=== PATIENT | female | born 1965 | race Caucasian/White ===

== ENCOUNTER 2016-08-01 08:21 | Day surgery (SDC) | payer BC ==
[2016-07-29 14:12] VITALS: BMI 21.1
[~2016-08-01 08:21] MED LIST: LACTATED RINGERS 1,000 ML IV SCH
[2016-08-01] MEDS ORDERED: LIDOCAINE 1% 20 ML VIAL (10MG/ML) FOR IV START INTRADERMA ONE (08:50)
[2016-08-01 09:01] VITALS: RESP 16; TEMP 97.9
[2016-08-01] MEDS ORDERED: PROPOFOL 10 MG/ML 20 ML VIAL IV ONE (09:18)
[2016-08-01] MEDS ORDERED: LIDOCAINE 1% INJ 10MG/ML (20 ML MDV) ONE (09:18)
--- NOTE | 2016-08-01 09:30 | P.GSHP ---
History of Present Illness H&P Date: 08/01/16 Chief Complaint: abdominal pain This a 51-year-old female who presents today for EGD and colonoscopy. Patient had complaints of abdominal pain. The pain is in the epigastric area and left side. - Constitutional Constitutional: Reports as per HPI Past Medical History Past Medical History: Asthma, Fibromyalgia, GERD/Reflux, Hypertension Additional Past Medical History / Comment(s): ASTHMA (NO MEDS), CONSTIPATION AND BLOATING. History of Any Multi-Drug Resistant Organisms: None Reported Past Surgical History: Cholecystectomy Additional Past Surgical History / Comment(s): SURGERY A BABY FOR STENOSIS? FOOD WOULD NOT GO DOWN? Past Anesthesia/Blood Transfusion Reactions: Motion Sickness Past Psychological History: Anxiety, Depression Smoking Status: Former smoker Past Alcohol Use History: Occasional Additional Past Alcohol Use History / Comment(s): QUIT SMOKING 16 YRS AGO , SMOKED APPROX 20YRS, LESS PACK PPD. Past Drug Use History: None Reported - Past Family History Mother Family Medical History: Deep Vein Thrombosis (DVT) Medications and Allergies Home Medications Medication Instructions Recorded Confirmed Type Metoprolol Tartrate [Lopressor] 25 mg PO QAM 06/09/16 08/01/16 History Omeprazole 40 mg PO BID 06/09/16 08/01/16 History Allergies Allergy/AdvReac Type Severity Reaction Status Date / Time No Known Allergies Allergy Verified 07/29/16 14:05 Surgical - Exam Vital Signs Temp Pulse Resp BP Pulse Ox 97.9 F 81 16 109/70 98 08/01/16 08:45 08/01/16 08:45 08/01/16 08:45 08/01/16 08:45 08/01/16 08:45 - General well developed, no distress - Eyes PERRL - ENT normal pinna - Neck no masses - Respiratory normal expansion - Cardiovascular Rhythm: regular - Abdomen Abdomen: soft, non tender Assessment and Plan Plan: Abdominal pain. We'll perform EGD and colonoscopy.
--- NOTE | 2016-08-01 09:58 | P.OP ---
Date of Procedure: 08/01/16 Preoperative Diagnosis: Abdominal pain Postoperative Diagnosis: Mild antral gastritis Small hiatal hernia Mild diverticulosis Anesthesia: MAC Surgeon: Adalid Weber Pathology: other (Antrum, esophagus) Condition: stable Disposition: PACU Description of Procedure: Patient's placed on the endoscopy table in the lateral position. She received IV sedation. The gastroscope some placed oropharynx passed into the esophagus and into the stomach. The scope was then placed through the pylorus. The first and second portion of duodenum appeared normal. Scope was then brought back the antrum this appeared mildly inflamed. A biopsies was performed. The scope was retroflexed and the the stomach appeared normal. There was a small hiatal hernia. The distal esophagus appeared minimally inflamed a biopsies performed. The proximal esophagus appeared normal. The scope was withdrawn for patient. Next digital rectal exam was performed which revealed no abnormalities. The flexible colonoscope was then placed patient anus and passed throughout the entire colon. The ileocecal valve was visualized. The cecum, ascending and transverse colon appeared normal. In the descending colon there is minimal diverticular changes. The colon had mild diverticulosis. Scope was then brought back the rectum and this appeared normal. Scope was withdrawn for patient.
[2016-08-01 10:07] VITALS: BP 100/66; PULSE 74
[2016-08-01] MEDS ORDERED: IV FLUID CONTINUATION 1,000 ML IV ONE (10:37)
== END 2016-08-01 10:39 | disposition home or self-care (01) ==
LOC: ORWHC2ENDO 08:21
PROVIDERS: ATTEND Surgery
DX: K21.0 Gastro-esophageal reflux disease with esophagitis (principal); K57.30 Diverticulosis of large intestine without perforation or abscess without bleeding; K29.50 Unspecified chronic gastritis without bleeding; K44.9 Diaphragmatic hernia without obstruction or gangrene; I10 Essential (primary) hypertension; Z79.899 Other long term (current) drug therapy; Z87.891 Personal history of nicotine dependence
CPT/HCPCS: 88305; 88342; 45378; 43239; J2001; J2704; 99153

== ENCOUNTER → 2019-12-30 | Outpatient (CLI) | payer BC, OTHER ==
[2019-12-30 14:13] LABS: HCT 42.6 % (34.0-46.0); HGB 13.9 gm/dL (11.4-16.0); MCH 34.7 pg (25.0-35.0); MCHC 32.7 g/dL (31.0-37.0); Macrocytosis Moderate; Mean Platelet Volume 8.6; Platelet Count 181 k/uL (150-450); RBC 4.02 m/uL (3.80-5.40); RDW 13.5 % (11.5-15.5); WBC 7.7 k/uL (3.8-10.6)
[2019-12-30 22:09] LABS: African American GFR (CKD) 118.1 (60.0-200.0); Albumin 4.1 g/dL (3.80-4.90); Albumin/Globulin Ratio 1.58 (1.60-3.17); Anion Gap 7.4 mmol/L (4.00-12.00); BUN/Creat Ratio 8.33 Ratio (12.00-20.00); Calcium 9.4 mg/dL (8.7-10.3); Carbon Dioxide 33.6 mmol/L (21.6-31.8); Chol/HDL Ratio 2.14; Globulin 2.6 g/dL (1.6-3.3); LDL Cholesterol,Calculated 104.8 mg/dL (0.0-131.0); Non-African American GFR(CKD) 101.9 (60.0-200.0); Potassium 3.6 mmol/L (3.5-5.5); Total Bilirubin 1.6 mg/dL (0.2-1.2); Total Protein 6.7 g/dL (6.2-8.2); VLDL Calculation 15.2 mg/dL (5.00-40.00)
== END | disposition home or self-care (01) ==
LOC: LABWHC1 12:57
PROVIDERS: ATTEND Family Medicine
DX: R07.9 Chest pain, unspecified (principal)
CPT/HCPCS: 36415; 80053; 80061; 84484; 85027; 85379

== ENCOUNTER → 2019-12-31 | Outpatient (CLI) | payer OTHER ==
--- NOTE | 2020-01-01 15:28 | ECHOF ---
Referral Reason:R07.9 chest pain MEASUREMENTS -------- HEIGHT: 165.1 cm WEIGHT: 65.8 kg BP: RVIDd: 3.1 cm (< 3.3) IVSd: 1.1 cm (0.6 - 1.1) LVIDd: 3.6 cm (3.9 - 5.3) LVPWd: 1.4 cm (0.6 - 1.1) IVSs: 1.1 cm LVIDs: 2.5 cm LVPWs: 1.5 cm LAESV Index (A-L): 21.31 ml/m Ao Diam: 2.1 cm (2.0 - 3.7) AV Cusp: 1.6 cm (1.5 - 2.6) MV EXCURSION: 18.667 mm (> 18.000) MV EF SLOPE: 66 mm/s (70 - 150) EPSS: 0.3 cm MV E Amador: 1.04 m/s MV DecT: 211 ms MV A Amador: 0.65 m/s MV E/A Ratio: 1.62 RAP: 5.00 mmHg RVSP: 23.97 mmHg FINDINGS -------- This was a technically adequate study. The left ventricular size is normal. There is mild concentric left ventricular hypertrophy. Overa ll left ventricular systolic function is normal with, an EF between 55 - 60 %. The diastolic fillin g pattern is normal for the age of the patient 10.27. The right ventricle is normal in size. Normal LA size by volume 22+/-6 ml/m2. The right atrial size is normal. Interatrial and interventricular septum intact. There is no evidence of aortic regurgitation. There is no evidence of aortic stenosis. There is trace mitral regurgitation. Mild tricuspid regurgitation present. There is no evidence of pulmonary hypertension. The right v entricular systolic pressure, as measured by Doppler, is 23.97mmHg. There is no pulmonic regurgitation present. The aortic root size is normal. IVC Not well visulized. There is no pericardial effusion. CONCLUSIONS -------- 1. This was a technically adequate study. 2. The left ventricular size is normal. 3. There is mild concentric left ventricular hypertrophy. 4. Overall left ventricular systolic function is normal with, an EF between 55 - 60 %. 5. The diastolic filling pattern is normal for the age of the patient 10.27 6. The right ventricle is normal in size. 7. Normal LA size by volume 22+/-6 ml/m2. 8. The right atrial size is normal. 9. Interatrial and interventricular septum intact. 10. There is no evidence of aortic regurgitation. 11. There is no evidence of aortic stenosis. 12. There is trace mitral regurgitation. 13. Mild tricuspid regurgitation present. 14. There is no evidence of pulmonary hypertension. 15. The right ventricular systolic pressure, as measured by Doppler, is 23.97mmHg. 16. There is no pulmonic regurgitation present. 17. The aortic root size is normal. 18. IVC Not well visulized. 19. There is no pericardial effusion. NEUROSURGERY PHYSICIAN: Katrin Bowman RDCS
== END | disposition home or self-care (01) ==
LOC: RADECHMAIN 13:50
PROVIDERS: ATTEND Family Medicine
DX: I08.1 Rheumatic disorders of both mitral and tricuspid valves (principal)
CPT/HCPCS: 93306

== ENCOUNTER → 2020-01-01 | Outpatient (CLI) | payer OTHER ==
--- NOTE | 2020-01-01 16:55 | CT ---
EXAMINATION TYPE: CT angio chest DATE OF EXAM: 01/01/2020 COMPARISON: None HISTORY: Left sided chest pain, elevated d-dimer. CT DLP: 161.1 mGycm Automated exposure control for dose reduction was used. CONTRAST: Performed with IV Contrast, patient injected with 100 mL of Isovue 370. There are 3-D post processed images. The lungs are clear of infiltrate. There is no evidence of a pulmonary mass. There is no pleural effu peggy. There is no pericardial effusion. There is some fatty infiltration of the liver. Heart size is normal. There are no hilar masses. There is no mediastinal adenopathy. Thoracic aorta a ppears normal. There is no sign of aneurysm or dissection. Thoracic spine is intact. There is no comp ression fracture. Sternum is intact. Ribs appear intact. There is normal contrast opacification of the pulmonary arteries. There are no filling defects. IMPRESSION: Normal CT angiogram of the chest. No evidence of pulmonary embolism.
== END | disposition home or self-care (01) ==
LOC: RADCTMAIN 16:22
PROVIDERS: ATTEND Family Medicine
DX: R07.9 Chest pain, unspecified (principal); R79.89 Other specified abnormal findings of blood chemistry
CPT/HCPCS: 71275; Q9967

== ENCOUNTER 2020-04-13 10:54 | Inpatient (IN) | payer OTHER ==
[2020-04-13] MEDS ORDERED: SODIUM CHLORIDE 0.9% 1,000 ML IV STA (11:43)
[2020-04-13] MEDS ORDERED: HYDROmorphone 0.5 MG/0.5 ML SYRINGE IVP STA (11:43)
[2020-04-13] MEDS ORDERED: ONDANSETRON 4 MG/2 ML VIAL IVP STA (11:43)
--- NOTE | 2020-04-13 12:30 | ED ---
General Adult HPI - General Chief complaint: Abdominal Pain Stated complaint: Abd Pain, L Side Numbness Time Seen by Provider: 04/13/20 11:16 Source: patient, RN notes reviewed Mode of arrival: wheelchair Limitations: no limitations - History of Present Illness Initial comments: 55-year-old female with a past medical history of asthma, fibromyalgia, GERD, cholecystectomy presents to the emergency room for abdominal discomfort. Patient reports that she has had bloating of her abdomen for the past 3 weeks. She reports that a week ago she started to have swelling in her legs as well as a rash to her abdomen. Patient had an ultrasound performed that showed hypoechoic area/fluid surrounding the liver they may represent effusion or ascites. Correlate with computed tomography scan. Patient was then sent into the emergency room for a CAT scan by Dr. Christensen. Patient's abdominal pain has been accompanied by vomiting. She does not have diarrhea. Patient has no other complaints at this time including shortness of breath, chest pain, headache, or visual changes. - Related Data Home Medications Medication Instructions Recorded Confirmed Omeprazole 40 mg PO DAILY 06/09/16 04/13/20 Atorvastatin [Lipitor] 20 mg PO DAILY 04/13/20 04/13/20 Sulfamethox-Tmp 800-160Mg [Bactrim 1 tab PO Q12HR 04/13/20 04/13/20 DS 800-160 mg] valACYclovir HCL [Valtrex] 1,000 mg PO TID 04/13/20 04/13/20 Allergies Allergy/AdvReac Type Severity Reaction Status Date / Time No Known Allergies Allergy Verified 04/13/20 11:45 Review of Systems ROS Statement: Those systems with pertinent positive or pertinent negative responses have been documented in the HPI. ROS Other: All systems not noted in ROS Statement are negative. Past Medical History Past Medical History: Asthma, Fibromyalgia, GERD/Reflux, Hypertension Additional Past Medical History / Comment(s): ASTHMA (NO MEDS), CONSTIPATION AND BLOATING. History of Any Multi-Drug Resistant Organisms: None Reported Past Surgical History: Cholecystectomy Additional Past Surgical History / Comment(s): pyloric stenosis Past Anesthesia/Blood Transfusion Reactions: Motion Sickness Past Psychological History: Anxiety, Depression Smoking Status: Never smoker Past Alcohol Use History: Occasional Past Drug Use History: None Reported - Past Family History Mother Family Medical History: Deep Vein Thrombosis (DVT) General Exam Limitations: no limitations General appearance: alert, in no apparent distress Head exam: Present: atraumatic, normocephalic, normal inspection Eye exam: Present: normal appearance, PERRL, EOMI. Absent: scleral icterus, conjunctival injection, periorbital swelling ENT exam: Present: normal exam, mucous membranes moist Neck exam: Present: normal inspection, full ROM. Absent: tenderness, meningismus, lymphadenopathy Respiratory exam: Present: normal lung sounds bilaterally. Absent: respiratory distress, wheezes, rales, rhonchi, stridor Cardiovascular Exam: Present: regular rate, normal rhythm, normal heart sounds. Absent: systolic murmur, diastolic murmur, rubs, gallop, clicks GI/Abdominal exam: Present: distended, tenderness (Generalized abdominal tenderness), normal bowel sounds. Absent: guarding, rebound, rigid Extremities exam: Present: other (1+ pitting edema noted in the lower 70s bilaterally) Neurological exam: Present: alert Skin exam: Present: rash (Patient also has an erythematous macular rash noted to the abdomen that is blanchable.) Course Vital Signs 04/13/20 11:09 Temperature 99.4 F Pulse Rate 114 H Respiratory 18 Rate Blood Pressure 118/60 O2 Sat by Pulse 98 Oximetry Medical Decision Making - Medical Decision Making Patient had pelvic ultrasound outpatient that showed a single fibroid. However there was massive fluid identified throughout the pelvis recommending a computed tomography scan for further evaluation. . Patient had an abdomen ultrasound that showed hypoechoic area/fluid surrounding the liver that may represent effusion or ascites, correlate with CT. Gallbladder is absent. Common bile duct measures 5 mm. Patient's CA-125 was 514. CBC is unremarkable. CMP showed a total bilirubin of 9.9 with transaminitis noted. Urinalysis shows 2+ ketones 2+ bilirubin. Patient does have a history of cholecystectomy. CT abdomen and pelvis with contrast shows hepatomegaly with diffuse heterogeneous enhancement liver correlate for diffuse hepatocellular disease. There is a small amount of ascites, correlate clinically. Area of low attention seen within the caudate lobe suggestive of fatty infiltration. Nonspecific bowel gas pattern with a few prominent small bowel loops correlate for ileus or enteritis. Partial obstruct ion felt less likely but not entirely excluded. - Lab Data Result diagrams: 04/13/20 12:11 04/13/20 12:11 Lab Results 10/12/20 10/12/20 10/12/20 Range/Units 12:11 12:11 12:11 WBC 9.9 (3.8-10.6) k/uL RBC 3.36 L (3.80-5.40) m/uL Hgb 11.8 (11.4-16.0) gm/dL Hct 35.4 (34.0-46.0) % MCV 105.1 H (80.0-100.0) fL MCH 35.2 H (25.0-35.0) pg MCHC 33.5 (31.0-37.0) g/dL RDW 17.3 H (11.5-15.5) % Plt Count 198 (150-450) k/uL Neutrophils % 74 % Lymphocytes % 15 % Monocytes % 8 % Eosinophils % 2 % Basophils % 1 % Neutrophils # 7.4 (1.3-7.7) k/uL Lymphocytes # 1.5 (1.0-4.8) k/uL Monocytes # 0.8 (0-1.0) k/uL Eosinophils # 0.2 (0-0.7) k/uL Basophils # 0.1 (0-0.2) k/uL Anisocytosis Slight Macrocytosis Moderate PT (9.0-12.0) sec INR (<1.2) APTT (22.0-30.0) sec Sodium 127 L (137-145) mmol/L Potassium 3.9 (3.5-5.1) mmol/L Chloride 89 L (98-107) mmol/L Carbon Dioxide 23 (22-30) mmol/L Anion Gap 15 mmol/L BUN 10 (7-17) mg/dL Creatinine 0.61 (0.52-1.04) mg/dL Est GFR (CKD-EPI)AfAm >90 (>60 ml/min/1.73 sqM) Est GFR (CKD-EPI)NonAf >90 (>60 ml/min/1.73 sqM) Glucose 79 (74-99) mg/dL Calcium 8.7 (8.4-10.2) mg/dL Total Bilirubin 9.9 H (0.2-1.3) mg/dL AST 194 H (14-36) U/L ALT 51 H (4-34) U/L Alkaline Phosphatase 219 H (38-126) U/L Total Protein 7.6 (6.3-8.2) g/dL Albumin 3.7 (3.5-5.0) g/dL Amylase 41 (30-110) U/L Lipase 158 (23-300) U/L Urine Color Dark Yellow Urine Appearance Clear (Clear) Urine pH 6.0 (5.0-8.0) Ur Specific Equality 1.013 (1.001-1.035) Urine Protein Negative (Negative) Urine Glucose (UA) Negative (Negative) Urine Ketones 2+ H (Negative) Urine Blood Negative (Negative) Urine Nitrite Negative (Negative) Urine Bilirubin 2+ H (Negative) Urine Urobilinogen 8.0 (<2.0) mg/dL Ur Leukocyte Esterase Negative (Negative) 04/13/20 Range/Units 12:11 WBC (3.8-10.6) k/uL RBC (3.80-5.40) m/uL Hgb (11.4-16.0) gm/dL Hct (34.0-46.0) % MCV (80.0-100.0) fL MCH (25.0-35.0) pg MCHC (31.0-37.0) g/dL RDW (11.5-15.5) % Plt Count (150-450) k/uL Neutrophils % % Lymphocytes % % Monocytes % % Eosinophils % % Basophils % % Neutrophils # (1.3-7.7) k/uL Lymphocytes # (1.0-4.8) k/uL Monocytes # (0-1.0) k/uL Eosinophils # (0-0.7) k/uL Basophils # (0-0.2) k/uL Anisocytosis Macrocytosis PT 13.8 H (9.0-12.0) sec INR 1.4 H (<1.2) APTT 28.0 (22.0-30.0) sec Sodium (137-145) mmol/L Potassium (3.5-5.1) mmol/L Chloride (98-107) mmol/L Carbon Dioxide (22-30) mmol/L Anion Gap mmol/L BUN (7-17) mg/dL Creatinine (0.52-1.04) mg/dL Est GFR (CKD-EPI)AfAm (>60 ml/min/1.73 sqM) Est GFR (CKD-EPI)NonAf (>60 ml/min/1.73 sqM) Glucose (74-99) mg/dL Calcium (8.4-10.2) mg/dL Total Bilirubin (0.2-1.3) mg/dL AST (14-36) U/L ALT (4-34) U/L Alkaline Phosphatase (38-126) U/L Total Protein (6.3-8.2) g/dL Albumin (3.5-5.0) g/dL Amylase (30-110) U/L Lipase (23-300) U/L Urine Color Urine Appearance (Clear) Urine pH (5.0-8.0) Ur Specific Equality (1.001-1.035) Urine Protein (Negative) Urine Glucose (UA) (Negative) Urine Ketones (Negative) Urine Blood (Negative) Urine Nitrite (Negative) Urine Bilirubin (Negative) Urine Urobilinogen (<2.0) mg/dL Ur Leukocyte Esterase (Negative) Disposition Clinical Impression: Abdominal pain, Hyperbilirubinemia, Transaminitis Disposition: ADMITTED IP TO THIS [facility] Condition: Fair Is patient prescribed a controlled substance at d/c from ED?: No Referrals: Sherley Christensen DO [Primary Care Provider] - 1-2 days Time of Disposition: 14:26
[2020-04-13 12:31] LABS: Appearance,Urine Clear (Clear); Bilirubin,Urine 2+ (Negative); Blood,Urine Negative (Negative); Color,Urine Dark Yellow; Glucose,Urine (UA) Negative (Negative); Ketones,Urine 2+ (Negative); Leukocyte Esterase,Urine Negative (Negative); Nitrite,Urine Negative (Negative); Protein,Urine Negative (Negative); Specific Gravity,Urine 1.013 (1.001-1.035)
[2020-04-13 12:36] LABS: Anisocytosis Slight; Basophils # (A) 0.1 k/uL (0-0.2); Basophils % (A) 1 %; Eosinophils # (A) 0.2 k/uL (0-0.7); Eosinophils % (A) 2 %; HCT 35.4 % (34.0-46.0); HGB 11.8 gm/dL (11.4-16.0); Lymphocytes # (A) 1.5 k/uL (1.0-4.8); Lymphocytes % (A) 15 %; MCH 35.2 pg (25.0-35.0); MCHC 33.5 g/dL (31.0-37.0); MCV 105.1 fL (80.0-100.0); Macrocytosis Moderate; Mean Platelet Volume 8.9; Monocytes # (A) 0.8 k/uL (0-1.0); Monocytes % (A) 8 %; Neutrophils # (A) 7.4 k/uL (1.3-7.7); Neutrophils % (A) 74 %; Platelet Count 198 k/uL (150-450); RBC 3.36 m/uL (3.80-5.40); RDW 17.3 % (11.5-15.5); WBC 9.9 k/uL (3.8-10.6)
[2020-04-13 12:47] LABS: ALT 51 U/L (4-34); AST 194 U/L (14-36); African American GFR (CKD) >90 (>60 ml/min/1.73 sqM); Albumin 3.7 g/dL (3.5-5.0); Alkaline Phosphatase 219 U/L (38-126); Amylase 41 U/L (30-110); Anion Gap 15 mmol/L; Blood Urea Nitrogen 10 mg/dL (7-17); Calcium 8.7 mg/dL (8.4-10.2); Carbon Dioxide 23 mmol/L (22-30); Chloride 89 mmol/L (98-107); Glucose 79 mg/dL (74-99); Non-African American GFR(CKD) >90 (>60 ml/min/1.73 sqM); Sodium 127 mmol/L (137-145); Total Bilirubin 9.9 mg/dL (0.2-1.3); Total Protein 7.6 g/dL (6.3-8.2)
[2020-04-13 12:51] LABS: Potassium 3.9 mmol/L (3.5-5.1)
[2020-04-13 12:56] LABS: INR 1.4 (<1.2); Prothrombin Time 13.8 sec (9.0-12.0)
--- NOTE | 2020-04-13 13:43 | CT ---
EXAMINATION TYPE: CT abdomen pelvis w con DATE OF EXAM: 04/13/2020 COMPARISON: None HISTORY: Abdominal pain, left sided numbness CT DLP: 840 mGycm Automated exposure control for dose reduction was used. CONTRAST: CT scan of the abdomen pelvis is performed with IV Contrast, patient injected with 100 ml mL of Isovu e 300. FINDINGS- LUNG BASES-subsegmental changes involving the lung bases suggestive of atelectasis.. LIVER/GB-marked abnormal appearance of the liver with marked heterogeneity and heterogeneous enhancem ent. There is evidence of a small amount of ascites. Correlate for diffuse hepatocellular disease. He patic veins appear to enhance. Portal veins demonstrate enhancement. Mesenteric vasculature enhances normally.. PANCREAS- No gross abnormality is seen. SPLEEN- No gross abnormality is seen. ADRENALS- No gross abnormality is seen. KIDNEYS/BLADDER- no hydronephrosis nephrolithiasis or renal mass. BOWEL-bowel gas pattern nonspecific. Changes of diverticulosis noted.. Bowel gas pattern nonspecific. LYMPH NODES- No greater than 1cm abdominal or pelvic lymph nodes areappreciated. OSSEOUS STRUCTURES-hypertrophic and degenerative changes of the spine. OTHER- aorta of normal caliber. IMPRESSION- 1. Hepatomegaly with diffuse heterogeneous enhancement liver correlate for diffuse hepatocellular dis ease. There is a small amount of ascites correlate clinically. Area of low attenuation seen within th e region of the caudate lobe measures -19 Hounsfield units suggestive of fatty infiltration. 2. Nonspecific bowel gas pattern with a few prominent small bowel loops correlate for ileus or enteri tis. Partial obstruction felt less likely but not entirely excluded correlate clinically.
[2020-04-13] MEDS ORDERED: ONDANSETRON 4 MG/2 ML VIAL IVP PRN (14:14)
[2020-04-13] MEDS ORDERED: NALOXONE 0.4 MG/ML 1 ML VIAL IV PRN (14:14)
[2020-04-13] MEDS ORDERED: HYDROmorphone 0.5 MG/0.5 ML SYRINGE IVP PRN (14:14)
[2020-04-13] MEDS: SODIUM CHLORIDE 0.9% 1,000 ML IV SCH (15:33)
[2020-04-13] MEDS: valACYclovir HCL 1,000 MG TABLET PO SCH (22:01)
[2020-04-14] MEDS: SODIUM CHLORIDE 0.9% 1,000 ML IV SCH ×3 (05:00→23:23)
[2020-04-14] MEDS: PANTOPRAZOLE 40 MG TABLET PO SCH (08:37)
[2020-04-14] MEDS: valACYclovir HCL 1,000 MG TABLET PO SCH ×3 (08:38→21:37)
[2020-04-14 09:53] LABS: Anisocytosis Slight; HCT 34.3 % (34.0-46.0); HGB 10.8 gm/dL (11.4-16.0); MCH 34.9 pg (25.0-35.0); MCHC 31.3 g/dL (31.0-37.0); Macrocytosis Marked; Platelet Count 192 k/uL (150-450); RBC 3.08 m/uL (3.80-5.40); RDW 17.8 % (11.5-15.5); WBC 9.9 k/uL (3.8-10.6)
[2020-04-14 09:55] LABS: MCV 111.5 fL (80.0-100.0)
[2020-04-14 10:17] LABS: INR 1.4 (<1.2); Prothrombin Time 13.8 sec (9.0-12.0)
[2020-04-14] MEDS ORDERED: SPIRONOLACTONE 25 MG TAB PO STA (16:16)
--- NOTE | 2020-04-14 16:16 | US ---
EXAMINATION TYPE: US paracentesis abd w/image DATE OF EXAM: 04/14/2020 CLINICAL HISTORY: Ascites COMPARISON: CT abdomen pelvis 04/13/2020 [employer] BO[employer]ING TUB OPERATOR: Dr. Callie Fuentes PROCEDURE: Preprocedure preliminary ultrasound imaging demonstrates trace volume ascites. The procedure was discussed with the patient. The risks, complications, benefits, and alternatives we re discussed and any questions were answered. Informed consent was obtained. The patient was placed s upine on the ultrasound table and prepped and draped in the usual sterile fashion. All elements of maximal barrier technique were utilized. Under ultrasound guidance, access into the right upper quadrant was obtained with a 7 cm 5 [place] one-step centesis catheter. Approximately 1.3 liters of clear serous fluid was removed. Catheter was removed and sterile bandage was applied. The patient was stable throughout the procedure and remained stable upon discharge from Department of Radiology. IMPRESSION: Successful ultrasound-guided diagnostic paracentesis, with removal of 1.3 liters of clear serous flui d.
[2020-04-14] MEDS ORDERED: FUROSEMIDE 40 MG TAB PO STA (16:19)
[2020-04-14 17:31] LABS: Appearance,BF Clear; Color,BF Yellow
[2020-04-14 17:32] LABS: Nucleated Cells, Body Fluid 54 /uL; RBC, Body Fluid 850 /uL
[2020-04-14 17:33] LABS: Mononuclear WBC,Body Fluid 97 %; Polynuclear WBC,Body Fluid 3 %; Total Cells Counted,Body Fluid 100
[2020-04-14 21:19] LABS: African American GFR (CKD) 117.3 (60.0-200.0); Alpha Fetoprotein, Tumor Mkr <2.5 ng/mL (0.0-7.9); Anion Gap 16.5 mmol/L (4.00-12.00); Calcium 8.2 mg/dL (8.7-10.3); Carbon Dioxide 19.5 mmol/L (21.6-31.8); Non-African American GFR(CKD) 101.2 (60.0-200.0); Potassium 3.1 mmol/L (3.5-5.5); Total Bilirubin 9.4 mg/dL (0.2-1.2)
[2020-04-14 21:56] LABS: Hepatitis A Antibody IgM Non-Reactive (Non-Reactive); Hepatitis B Core IgM Non-Reactive (Non-Reactive); Hepatitis B Surface Antigen Non-Reactive (Non-Reactive); Hepatitis C IgG Antibody Non-Reactive (Non-Reactive)
--- NOTE | 2020-04-14 22:36 | P.HPIM ---
History of Present Illness H&P Date: 04/14/20 Chief Complaint: abdominal pain Zandra Cleveland is a 55 yo F with PMH of GERD, HLD who presented to the ED on the recommendation of her PCP due to worsening abdominal bloating and pain. She reports that over the past few weeks she has noticed her abdomen protruding as well as nausea and abdominal pain when she sits upright. She discussed this with her PCP and had an abdominal US performed which was overall unremarkable although labs noted elevation of LFTs and CA-125 in the 500s. Pt denies regular alcohol use. On presentation vitals stable, labs with bilirubin 9.9, elevated AST, ALT, alk phos. CT abd/pelvis with hepatomegaly and diffuse liver enhancement. Review of Systems All systems: negative Constitutional: Reports malaise, Denies chills, Denies fever Eyes: denies blurred vision, denies pain Ears, nose, mouth and throat: Denies headache, Denies sore throat Cardiovascular: Denies chest pain, Denies shortness of breath Respiratory: Denies cough Gastrointestinal: Reports abdominal pain, Reports bloating, Denies diarrhea, Denies nausea, Denies vomiting Genitourinary: Denies dysuria, Denies hematuria Musculoskeletal: Denies myalgias Integumentary: Denies pruritus, Denies rash Neurological: Denies numbness, Denies weakness Psychiatric: Denies anxiety, Denies depression Endocrine: Denies fatigue, Denies weight change Past Medical History Past Medical History: Asthma, GERD/Reflux, Hyperlipidemia Additional Past Medical History / Comment(s): Mild asthma-no medication, diverticular disease, vertigo since January 2020 History of Any Multi-Drug Resistant Organisms: None Reported Past Surgical History: Cholecystectomy Additional Past Surgical History / Comment(s): Surgery for pyloric stenosis as an , EGD, colonoscopy Past Anesthesia/Blood Transfusion Reactions: Motion Sickness Additional Past Anesthesia/Blood Transfusion Reaction / Comment(s): Pt has had low blood pressure. Pt has clausterphobia. Smoking Status: Former smoker - Past Family History Mother Family Medical History: Deep Vein Thrombosis (DVT) Additional Family Medical History / Comment(s): Pancreatic pseudocyst/pancreatitis. Father Family Medical History: Liver Disease, Myocardial Infarction ([place]) Additional Family Medical History / Comment(s): Hepatitis, liver shunt. of [place] at age 63 yrs. Medications and Allergies Home Medications Medication Instructions Recorded Confirmed Type Omeprazole 40 mg PO DAILY 06/09/16 04/13/20 History Atorvastatin [Lipitor] 20 mg PO DAILY 04/13/20 04/13/20 History Sulfamethox-Tmp 800-160Mg [Bactrim 1 tab PO Q12HR 04/13/20 04/13/20 History DS 800-160 mg] valACYclovir HCL [Valtrex] 1,000 mg PO TID 04/13/20 04/13/20 History Allergies Allergy/AdvReac Type Severity Reaction Status Date / Time No Known Allergies Allergy Verified 04/13/20 11:45 Physical Exam Vitals: Vital Signs Temp Pulse Resp BP Pulse Ox 04/14/20 19:47 98.4 F 102 H 18 110/55 93 L 04/14/20 14:25 105 H 16 114/64 97 04/14/20 14:10 105 H 16 111/62 97 04/14/20 13:50 106 H 18 109/64 98 04/14/20 11:25 98.6 F 105 H 16 115/65 95 04/14/20 05:51 98.4 F 105 H 16 110/62 94 L Intake and Output 04/14/20 04/14/20 04/14/20 06:59 14:59 22:59 Intake Total 800 Balance 800 Intake: Intake, IV Titration 800 Amount Sodium Chloride 0.9% 1, 800 000 ml @ 100 mls/hr IV . Q10H [facility] Rx#:[id number] Other: Voiding Method Toilet # Voids 2 1 # Bowel Movements 1 Weight 68.4 kg General: well nourished, well developed, NAD. Vitals reviewed Eyes: PERRL, EOMI, conjunctiva normal HENT: normocephalic, mucus membranes moist Neck: supple, no JVD Lungs: normal respiratory effort, no wheezes or rales CV: Regular rate and rhythm, no murmur. Peripheral pulses 2+. No edema Abdomen: soft, distended, mild tenderness, no organomegaly Lymph: no cervical or axillary LAD Skin: warm and dry. Neuro: A&Ox3, normal mood and affect Results CBC & Chem 7: 04/14/20 09:12 04/14/20 09:12 Labs: Abnormal Lab Results - Last 24 Hours (Table) 04/14/20 04/14/20 04/14/20 Range/Units 09:12 09:12 09:12 RBC 3.08 L (3.80-5.40) m/uL Hgb 10.8 L (11.4-16.0) gm/dL MCV 111.5 H D (80.0-100.0) fL RDW 17.8 H (11.5-15.5) % Macrocytosis Marked A PT 13.8 H (9.0-12.0) sec INR 1.4 H (<1.2) Sodium 133 L (135-145) mmol/L Potassium 3.1 L (3.5-5.5) mmol/L Carbon Dioxide 19.5 L (21.6-31.8) mmol/L Anion Gap 16.50 H (4.00-12.00) mmol/L Glucose 67 L (70-110) mg/dL Calcium 8.2 L (8.7-10.3) mg/dL Total Bilirubin 9.4 H (0.2-1.2) mg/dL AST 160 H (13-35) U/L ALT 46 H (8-44) U/L Alkaline Phosphatase 194 H (41-126) U/L Total Protein 6.0 L (6.2-8.2) g/dL Albumin 3.00 L (3.80-4.90) g/dL Albumin/Globulin Ratio 1.00 L (1.60-3.17) g/dL Thrombosis Risk Factor Assmnt - Choose All That Apply Any of the Below Risk Factors Present?: Yes Each Factor Represents 1 point: Age 41-60 years, Swollen legs (current) Other Risk Factors: Yes Each Risk Factor Represents 3 Points: History of DVT/PE Other congenital or acquired thrombophilia - If yes, enter type in comment: No Thrombosis Risk Factor Assessment Total Risk Factor Score: 5 Thrombosis Risk Factor Assessment Level: High Risk Assessment and Plan (1) Ascites Current Visit: Yes Status: Acute Code(s): R18.8 - OTHER ASCITES SNOMED Code(s): 468155335 (2) GERD (gastroesophageal reflux disease) Current Visit: Yes Status: Acute Code(s): K21.9 - GASTRO-ESOPHAGEAL REFLUX DISEASE WITHOUT ESOPHAGITIS SNOMED Code(s): 821309500 (3) Elevated LFTs Current Visit: Yes Status: Acute Code(s): R79.89 - OTHER SPECIFIED ABNORMAL FINDINGS OF BLOOD CHEMISTRY SNOMED Code(s): 862302232 (4) Transaminitis Current Visit: Yes Status: Acute Code(s): R74.01 - SNOMED Code(s): 571487476 Plan: 1. Abdominal ascites. Hepatomegaly and elevated LFTs. GI consulted for further eval. Hepatitis panel. Paracentesis and fluid analysis 2. GERD. Continue protonix 3. HTN. Continue aldactone
--- NOTE | 2020-04-14 23:51 | CONS ---
CONSULTATION DATE OF DICTATION: 04/14/2020 REASON FOR CONSULTATION: Abdominal distention, new onset ascites and jaundice. HISTORY OF PRESENT ILLNESS: The patient is a 55-year-old pleasant white female admitted to hospital because of abdominal distention for the last 2 weeks duration. She was having abdominal bloating, some vague abdominal discomfort with decreased appetite and she saw Dr. Sherley Christensen on an outpatient basis. Apparently she did have an ultrasound of the abdomen done that showed evidence of new onset ascites. She was subsequently sent to the hospital for further evaluation. In the ER, she did have a CT of the abdomen and pelvis done that showed small amount of ascites, hepatomegaly with diffuse fatty infiltration of the liver and otherwise unremarkable. She underwent diagnostic and therapeutic paracentesis today and approximately 1.2 L of fluid was removed and analysis is still pending. On an outpatient basis apparently she did have labs done and CA-125 was elevated at 500. She did have a pelvic ultrasound done on an outpatient basis and as per the report, she had a small amount of fluid in the cul-de-sac, but otherwise unremarkable and a small uterine fibroid noted. The patient has history of alcohol use and she has been drinking moderate amount of alcohol for the last several years. However, since August of this year, she has been drinking about 4 to 5 glasses of wine on a daily basis. No prior history of alcoholic liver disease. However, she was told by her family physician that her liver enzymes have been elevated for the last one year duration. No history of chronic liver disease in the past to her recollection. PAST MEDICAL HISTORY: Significant for gastroesophageal reflux disease, hypertension, hyperlipidemia. MEDICATIONS: Medications at home include: Valtrex, Lipitor, omeprazole. ALLERGIES: None. SOCIAL HISTORY: Former smoker. History of alcohol use as mentioned above. REVIEW OF SYSTEMS: CARDIOPULMONARY: No chest pain, no shortness of breath. GENITOURINARY: No dysuria or hematuria. MUSCULOSKELETAL: Unremarkable. SKIN: Skin rash she developed about 2 weeks ago for which she was recently given some cream. NEUROLOGY: Unremarkable. PSYCHIATRIC: Unremarkable. ENT/VISION: Unremarkable. CONSTITUTIONAL: Weight gain of 15 pounds in the last one month. No fever, chills, or night sweats. PAST SURGICAL HISTORY: Cholecystectomy. PHYSICAL EXAMINATION: She appears comfortable. No apparent distress. Vital signs are stable. Blood pressure is 119/60, pulse rate 88 and temperature 98.6. HEENT EXAMINATION: Unremarkable. Conjunctivae pink. Sclerae anicteric. Oral cavity, no lesions. NECK: No JVD or lymph node enlargement. CHEST: Clear to auscultation. HEART: Regular rate and rhythm. ABDOMEN: Is slightly distended. Liver was palpable 4 cm below the right costal margin. Spleen was not palpable. There was no free fluid noted. She just underwent paracentesis this afternoon. EXTREMITIES: 1+ pedal edema. SKIN: No rashes. NEUROLOGIC: Alert and oriented x3. No focal deficits. LABS: Labs from yesterday WBC 9.9, hemoglobin 11.8, MCV 105, platelets 198. PT 13.8, INR 1.4. T-bilirubin 9.9, AST 194, ALT 51, alkaline phosphatase 219. Ammonia 18. Albumin 3.7. Labs from today WBC 9.9, hemoglobin 10.8, and platelets 192. IMPRESSION: 1. New onset ascites in this lady with history of moderate amount of alcohol use for several years duration. CT of the abdomen did show evidence of small amount of ascites and enlarged liver with diffuse fatty infiltration, all suggestive of chronic liver disease with possible underlying alcoholic cirrhosis of the liver. Other etiologies of liver disease needs to be considered. 2. History of alcohol abuse. 3. Mild coagulopathy secondary to underlying liver disease. 4. Microcytic anemia. 5. Elevated LFTs with bilirubin at 9.9 and elevated serum transaminases with AST more than ALT, all consistent with alcoholic liver disease with a component of acute alcoholic hepatitis. RECOMMENDATIONS: 1. Obtain hepatitis serologies for A, B and C. 2. Start on diuretics with Lasix 40 mg daily and Aldactone 50 mg daily. 3. Low-fat diet. 4. Await fluid cytology results. 5. I had a lengthy discussion with the patient as well as sister who was at the bedside regarding long-term prognosis. 6. We will follow with you closely. Thank you for this consultation. MMODL / IJN: [id number] /
[2020-04-15 03:09] LABS: Total Protein, Body Fluid 970 mg/dL
[2020-04-15 03:27] LABS: Protein, Total 5.9 g/dL (6.2-8.2)
[2020-04-15] MEDS: SODIUM CHLORIDE 0.9% 1,000 ML IV SCH ×2 (05:54→12:31)
[2020-04-15 06:20] LABS: Albumin, Fluid Source Paracentesis Fluid
[2020-04-15 09:24] LABS: INR 1.26 (0.90-1.11); Prothrombin Time 13.4 sec (9.9-11.9)
[2020-04-15 09:55] LABS: % Iron Saturation 34.69 (12.00-45.00); African American GFR (CKD) 117.3 (60.0-200.0); Albumin 2.9 g/dL (3.80-4.90); Albumin/Globulin Ratio 1.12 (1.60-3.17); Anion Gap 16.2 mmol/L (4.00-12.00); Calcium 8.3 mg/dL (8.7-10.3); Carbon Dioxide 21.8 mmol/L (21.6-31.8); Globulin 2.6 g/dL (1.6-3.3); Non-African American GFR(CKD) 101.2 (60.0-200.0); Potassium 2.9 mmol/L (3.5-5.5); Total Bilirubin 8.1 mg/dL (0.3-1.2); Total Protein 5.5 g/dL (6.2-8.2)
[2020-04-15] MEDS: valACYclovir HCL 1,000 MG TABLET PO SCH ×3 (10:09→21:41)
[2020-04-15] MEDS: PANTOPRAZOLE 40 MG TABLET PO SCH (10:09)
[2020-04-15 11:39] LABS: Liver/Kidney Microsome Antibod 1.6 UNITS (<=20)
--- NOTE | 2020-04-15 11:54 | P.CNNES ---
History of Present Illness Consult date: 04/15/20 Requesting physician: Kayleigh Benavidez Reason for Consult: Left outer thigh numbness History of Present Illness: Patient is a 55-year-old female, with history of asthma, fibromyalgia, GERD, came to the hospital on 04/13/2020 for abdominal discomfort, bloating for 3 weeks prior to arrival. She also complained of swelling of the legs as well as rash to her abdomen. Neurology was consulted for paresthesias involving the left lateral thigh region. Patient states that in the last couple of weeks she has developed swelling in her legs, involving the feet, ankles, calves and thighs, all the way to the groin, and abdominal distention. She has noticed difficulty lifting her legs while trying to change pants or flexing her thighs at the hips while sitting, like when putting on socks. She has to manually lift her leg. In the last few days, she has developed numbness in the left lateral thigh region, in the distribution of lateral femoral cutaneous nerve of thigh region. CT of abdomen and pelvis revealed hepatomegaly with diffuse heterogeneous enhancement liver correlate for diffuse hepatocellular disease. There is small amount of ascites correlate clinically. Nonspecific bowel gas pattern. Partial obstruction felt less likely. Patient's blood test shows normal CBC with elevated MCV 111.5, hemoglobin 11.8 platelets 198. INR is 1.4, sodium 127 potassium 3.9 and renal functions normal. Patient's AST was 194, which has come down to 140 and ALT 51 down to 44. KAYCE is positive. Hepatitis panel negative. Ammonia normal 21. Antimitochondrial antibodies are negative, anti-smooth muscle antibodies are mildly +24/20. Amylase, lipase and AFB are normal. Alpha-1 antitrypsin and ceruloplasmin level pending. Patient states that in December 2019 she also had an episode of swelling of bilateral lower limbs, which lasted for couple days and then went away. Patient denies diabetes. She used to drink couple drinks of wine every day for years. Since the pandemic started, she has been drinking 3-4 drinks of vodka per day up until this admission. Denies any drugs. Review of Systems As above in detail. All other review of systems unremarkable. Denies any chest pain shortness of breath. Denies any double vision loss of vision [employer] so throat, dysphagia. Patient sometimes gets tingling in the third and fourth toes of the right foot. Past Medical History Past Medical History: Asthma, GERD/Reflux, Hyperlipidemia Additional Past Medical History / Comment(s): Mild asthma-no medication, diverticular disease, vertigo since January 2020 History of Any Multi-Drug Resistant Organisms: None Reported Past Surgical History: Cholecystectomy Additional Past Surgical History / Comment(s): Surgery for pyloric stenosis as an infant, EGD, colonoscopy Past Anesthesia/Blood Transfusion Reactions: Motion Sickness Additional Past Anesthesia/Blood Transfusion Reaction / Comment(s): Pt has had low blood pressure. Pt has clausterphobia. Smoking Status: Former smoker - Past Family History Mother Family Medical History: Deep Vein Thrombosis (DVT) Additional Family Medical History / Comment(s): Pancreatic pseudocyst/pancreatitis. Father Family Medical History: Liver Disease, Myocardial Infarction ([place]) Additional Family Medical History / Comment(s): Hepatitis, liver shunt. of [place] at age 63 yrs. Medications and Allergies Home Medications Medication Instructions Recorded Confirmed Type Omeprazole 40 mg PO DAILY 06/09/16 04/13/20 History Atorvastatin [Lipitor] 20 mg PO DAILY 04/13/20 04/13/20 History Sulfamethox-Tmp 800-160Mg [Bactrim 1 tab PO Q12HR 04/13/20 04/13/20 History DS 800-160 mg] valACYclovir HCL [Valtrex] 1,000 mg PO TID 04/13/20 04/13/20 History Allergies Allergy/AdvReac Type Severity Reaction Status Date / Time No Known Allergies Allergy Verified 04/13/20 11:45 Physical Examination - Vital Signs Vital Signs: Vital Signs Temp Pulse Resp BP Pulse Ox 04/15/20 05:00 98.2 F 102 H 18 104/57 96 04/14/20 19:47 98.4 F 102 H 18 110/55 93 L 04/14/20 14:25 105 H 16 114/64 97 04/14/20 14:10 105 H 16 111/62 97 04/14/20 13:50 106 H 18 109/64 98 04/14/20 11:25 98.6 F 105 H 16 115/65 95 Intake and Output 04/14/20 04/15/20 04/15/20 22:59 06:59 14:59 Intake Total 350 Balance 350 Intake: Intake, IV Titration 350 Amount Sodium Chloride 0.9% 1, 350 000 ml @ 100 mls/hr IV . Q10H [facility] Rx#:[id number] Other: Voiding Method Toilet # Voids 1 2 On examination patient is a middle aged female, very pleasant in no acute distress. Patient is alert awake oriented to time place and person. Speech and language functions are normal. Attention, concentration and fund of knowledge is adequate. On cranial nerve exam admission pupils are round and reactive to light, visual campbell are full on confrontation, extraocular muscles are intact with no nystagmus. Face is symmetric, tongue protrudes the midline. Palatal elevation and sensation normal. Hearing and shoulder shrug normal on m uscle strength testing there is no pronator drift and the strength is normal in the arms and legs. Her hip flexion is 4+ bilaterally. Abduction is 5- bilaterally. Knees and ankles and toes are normal. Reflexes are 1+ in the upper limbs, 2 at the knees, 1 at ankles and plantars are downgoing no clonus. Sensory touch is equal although she has decreased sensation in the left lower lateral thigh region, in the distribution of lateral cutaneous nerve of thigh. No ataxia for [id number] testing. Tone and bulk of muscles normal. On general examination there is no obvious bruit, S1 and S2 audible, abdomen is protuberant, with evidence of ascites. Patient has mild to moderate peripheral edema. Chest is clear. Results - Laboratory Findings CBC and BMP: 04/14/20 09:12 04/15/20 05:29 Abnormal Lab Findings: Abnormal Labs 04/13/20 04/13/20 04/13/20 12:11 12:11 12:11 RBC 3.36 L Hgb MCV 105.1 H MCH 35.2 H RDW 17.3 H Macrocytosis PT INR Sodium 127 L Potassium Chloride 89 L Carbon Dioxide Anion Gap Glucose Calcium TIBC Total Bilirubin 9.9 H AST 194 H ALT 51 H Alkaline Phosphatase 219 H Total Protein Total Protein (PEP) Albumin Albumin/Globulin Ratio Urine Ketones 2+ H Urine Bilirubin 2+ H KAYCE Screen 04/13/20 04/14/20 04/14/20 12:11 09:12 09:12 RBC 3.08 L Hgb 10.8 L MCV 111.5 H D MCH RDW 17.8 H Macrocytosis Marked A PT 13.8 H INR 1.4 H Sodium 133 L Potassium 3.1 L Chloride Carbon Dioxide 19.5 L Anion Gap 16.50 H Glucose 67 L Calcium 8.2 L TIBC Total Bilirubin 9.4 H AST 160 H ALT 46 H Alkaline Phosphatase 194 H Total Protein 6.0 L Total Protein (PEP) Albumin 3.00 L Albumin/Globulin Ratio 1.00 L Urine Ketones Urine Bilirubin KAYCE Screen 04/14/20 04/14/20 04/14/20 09:12 09:12 09:12 RBC Hgb MCV MCH RDW Macrocytosis PT 13.8 H INR 1.4 H Sodium Potassium Chloride Carbon Dioxide Anion Gap Glucose Calcium TIBC Total Bilirubin AST ALT Alkaline Phosphatase Total Protein Total Protein (PEP) 5.9 L Albumin Albumin/Globulin Ratio Urine Ketones Urine Bilirubin KAYCE Screen POSITIVE H 04/15/20 04/15/20 05:29 05:29 RBC Hgb MCV MCH RDW Macrocytosis PT 13.4 H INR 1.26 H Sodium 134 L Potassium 2.9 L Chloride Carbon Dioxide Anion Gap 16.20 H Glucose Calcium 8.3 L TIBC 147 L Total Bilirubin 8.1 H AST 140 H ALT Alkaline Phosphatase 189 H Total Protein 5.5 L Total Protein (PEP) Albumin 2.90 L Albumin/Globulin Ratio 1.12 L Urine Ketones Urine Bilirubin KAYCE Screen Assessment and Plan Assessment: * Meralgia paresthetica, left side, likely due to significant fluid retention, peripheral edema. Rule out peripheral poly-neuropathy * History of alcoholism. * Chronic liver disease with ascites. Plan: * Suggest appropriate measures to remove excessive fluid/edema will help with her left meralgia paresthetica. * We will check B12, folate, B6, TSH, A1c and B1 levels to rule out any metabolic causes of paresthesias. We will also check CK and aldolase. * Strongly recommend abstinence from alcohol, as alcohol may be contributing to polyneuropathy. * Neurology will follow.
[2020-04-15 13:14] LABS: Albumin 2.77 g/dL (3.80-4.90); Gamma Globulin 1.42 g/dL (0.70-1.50)
[2020-04-15] MEDS ORDERED: Potassium Replacement Protocol 1 EACH MISC MISCELLANE PRN ×2 (15:01→17:34)
[2020-04-15] MEDS ORDERED: Magnesium Replacement Protocol 1 EACH MISC MISCELLANE PRN (15:01)
--- NOTE | 2020-04-15 15:37 | P.PN ---
Subjective Progress Note Date: 04/15/20 Zandra Cleveland is a 55 yo F with PMH of GERD, HLD who presented to the ED on the recommendation of her PCP due to worsening abdominal bloating and pain. She reports that over the past few weeks she has noticed her abdomen protruding as well as nausea and abdominal pain when she sits upright. She discussed this with her PCP and had an abdominal US performed which was overall unremarkable although labs noted elevation of LFTs and CA-125 in the 500s. Pt denies regular alcohol use. On presentation vitals stable, labs with bilirubin 9.9, elevated AST, ALT, alk phos. CT abd/pelvis with hepatomegaly and diffuse liver enhancement. 04/15/20 status post paracentesis with 1.2 L of fluid drained yesterday, cu ltures/cytology pending. Tolerated procedure well. Today patient reports moderate "daily drinking of vodka instead of wine." Complains of abdominal pain, abdominal firmness more so on the bilateral upper quadrants. Continues on Aldactone and Lasix. INR trending down, 1.26. Sodium 134, potassium 2.9. T bili, LFTs improving. Ammonia level XXI. Albumin 2.9. Hepatitis serology reported nonreactive. Objective - Vital Signs Vital signs: Vital Signs Temp 98.2 F 04/15/20 05:00 Pulse 102 H 04/15/20 05:00 Resp 18 04/15/20 05:00 BP 104/57 04/15/20 05:00 Pulse Ox 96 04/15/20 05:00 Intake & Output 04/14/20 04/15/20 04/15/20 18:59 06:59 18:59 Intake Total 350 Balance 350 Weight 68.4 kg Intake: Intake, IV Titration 350 Amount Sodium Chloride 0.9% 1, 350 000 ml @ 100 mls/hr IV . Q10H [facility] Rx#:[id number] Other: Voiding Method Toilet # Voids 1 2 # Bowel Movements 1 - Exam General: well nourished, well developed, NAD. Vitals reviewed Eyes: PERRL, EOMI, conjunctiva normal HENT: normocephalic, mucus membranes moist Neck: supple, no JVD Lungs: normal respiratory effort, no wheezes or rales CV: Regular rate and rhythm, no murmur. Peripheral pulses 2+. No edema Abdomen: soft, distended, mild tenderness bilateral upper quadrants, palpable liver, as a bowel sounds Skin: warm and dry. Neuro: A&Ox3, no focal deficits, bilateral feet M/S 5/5, strength and sensation grossly intact - Labs CBC & Chem 7: 04/14/20 09:12 04/15/20 05:29 Labs: Abnormal Lab Results - Last 24 Hours (Table) 04/14/20 04/14/20 04/14/20 Range/Units 09:12 09:12 09:12 RBC 3.08 L (3.80-5.40) m/uL Hgb 10.8 L (11.4-16.0) gm/dL MCV 111.5 H D (80.0-100.0) fL RDW 17.8 H (11.5-15.5) % Macrocytosis Marked A PT 13.8 H (9.0-12.0) sec INR 1.4 H (<1.2) Sodium 133 L (135-145) mmol/L Potassium 3.1 L (3.5-5.5) mmol/L Carbon Dioxide 19.5 L (21.6-31.8) mmol/L Anion Gap 16.50 H (4.00-12.00) mmol/L Glucose 67 L (70-110) mg/dL Calcium 8.2 L (8.7-10.3) mg/dL Total Bilirubin 9.4 H (0.2-1.2) mg/dL AST 160 H (13-35) U/L ALT 46 H (8-44) U/L Alkaline Phosphatase 194 H (41-126) U/L Total Protein 6.0 L (6.2-8.2) g/dL Total Protein (PEP) (6.2-8.2) g/dL Albumin 3.00 L (3.80-4.90) g/dL Albumin/Globulin Ratio 1.00 L (1.60-3.17) g/dL KAYCE Screen (NEGATIVE) 04/14/20 04/14/20 04/15/20 Range/Units 09:12 09:12 05:29 RBC (3.80-5.40) m/uL Hgb (11.4-16.0) gm/dL MCV (80.0-100.0) fL RDW (11.5-15.5) % Macrocytosis PT 13.4 H (9.0-12.0) sec INR 1.26 H (<1.2) Sodium (135-145) mmol/L Potassium (3.5-5.5) mmol/L Carbon Dioxide (21.6-31.8) mmol/L Anion Gap (4.00-12.00) mmol/L Glucose (70-110) mg/dL Calcium (8.7-10.3) mg/dL Total Bilirubin (0.2-1.2) mg/dL AST (13-35) U/L ALT (8-44) U/L Alkaline Phosphatase (41-126) U/L Total Protein (6.2-8.2) g/dL Total Protein (PEP) 5.9 L (6.2-8.2) g/dL Albumin (3.80-4.90) g/dL Albumin/Globulin Ratio (1.60-3.17) g/dL KAYCE Screen POSITIVE H (NEGATIVE) Microbiology - Last 24 Hours (Table) 04/14/20 14:05 Gram Stain - Preliminary Paracentesis Fluid Body Fluid Culture - Preliminary 04/14/20 14:05 Anaerobic Culture - Preliminary Paracentesis Fluid Assessment and Plan Assessment: (1) Ascites, abdominal with hepatomegaly and elevated LFTs, status post paracentesis Current Visit: Yes Status: Acute Code(s): R18.8 - OTHER ASCITES SNOMED Code(s): 831941429 (2) GERD (gastroesophageal reflux disease) Current Visit: Yes Status: Acute Code(s): K21.9 - GASTRO-ESOPHAGEAL REFLUX DISEASE WITHOUT ESOPHAGITIS SNOMED Code(s): 626030330 (3) Elevated LFTs Current Visit: Yes Status: Acute Code(s): R79.89 - OTHER SPECIFIED ABNORMAL FINDINGS OF BLOOD CHEMISTRY SNOMED Code(s): 967208279 (4) Transaminitis Current Visit: Yes Status: Acute Code(s): R74.01 - SNOMED Code(s): 515933371 (5) chronic liver disease (6) alcoholic liver cirrhosis and patient with ongoing alcohol abuse (7) coagulopathy, mild secondary to the above (8) anemia of chronic disease (9) acute alcoholic hepatitis (10) left outer thigh numbness,paresthesia,polyneuropathy, suspect secondary to fluid retention from above (11) hypokalemia Plan: Continue on current medication regime ,monitoring and symptomatic treatment. Folic acid, multivitamin, thiamine added to med regimen. Maintain Aldactone, Lasix and PPI .Paracentesis fluid analysis/cytology results pending. Neuro consulted regarding complaints of left outer thigh numbness. Potassium supplementation ordered as per replacement protocol. Magnesium level added on with replacement protocol ordered. Alcohol abstinence reinforced The impression and plan of care has been dictated as directed. : I performed a history and examination of this patient, discussed the same with the dictator. I agree with the dictator's note ,documented as a scribe. Any additional findings or plans will be noted.
[2020-04-15] MEDS: THIAMINE 100 MG in SODIUM CHLORIDE 0.9% 50 ML IVPB SCH ×2 (16:31→22:13)
[2020-04-15] MEDS: MULTIVITAMINS, THERA 1 EACH TAB PO SCH (16:32)
[2020-04-15] MEDS: FOLIC ACID 1 MG TAB PO SCH (16:32)
--- NOTE | 2020-04-15 16:32 | P.PN ---
Subjective Progress Note Date: 04/15/20 Principal diagnosis: Abdominal distention, new onset ascites and jaundice This patient is a 55-year-old pleasant white female who is brought to the hospital because of abdominal distention with complaints of abdominal bloating, pain, and jaundice. The patient underwent a paracentesis yesterday where they removed 1.3 L of fluid which was sent for fluid studies. Cytology is pending. The patient states she still having significant abdominal distention and discomfort. She denies any nausea or vomiting. She states she had a normal brown bowel movement today. Objective - Vital Signs Vital signs: Vital Signs Temp 98.4 F 04/15/20 11:37 Pulse 101 H 04/15/20 11:37 Resp 18 04/15/20 11:37 BP 109/67 04/15/20 11:37 Pulse Ox 97 04/15/20 11:37 Intake & Output 04/14/20 04/15/20 04/15/20 18:59 06:59 18:59 Intake Total 350 Balance 350 Weight 68.4 kg Intake: Intake, IV Titration 350 Amount Sodium Chloride 0.9% 1, 350 000 ml @ 100 mls/hr IV . Q10H [facility] Rx#:[id number] Other: Voiding Method Toilet Toilet # Voids 1 2 # Bowel Movements 1 - Exam General appearance: The patient is alert, oriented, in no acute distress. HET: Head is normocephalic and atraumatic. Conjunctiva pink. Sclera icteric. Neck: Supple without lymphadenopathy. Abdomen: Soft, tender to palpation especially in epigastric and right upper quadrant region, distended with bowel sounds. No guarding or rigidity. Skin: Jaundice Extremities: No pedal edema Neurological: No focal deficits. Alert and oriented 3. - Labs CBC & Chem 7: 04/14/20 09:12 04/15/20 05:29 Labs: Abnormal Lab Results - Last 24 Hours (Table) 04/14/20 04/14/20 04/14/20 Range/Units 09:12 09:12 09:12 PT (9.9-11.9) sec INR (0.90-1.11) Sodium 133 L (135-145) mmol/L Potassium 3.1 L (3.5-5.5) mmol/L Carbon Dioxide 19.5 L (21.6-31.8) mmol/L Anion Gap 16.50 H (4.00-12.00) mmol/L Glucose 67 L (70-110) mg/dL Calcium 8.2 L (8.7-10.3) mg/dL TIBC (228-460) ug/dL Total Bilirubin 9.4 H (0.2-1.2) mg/dL AST 160 H (13-35) U/L ALT 46 H (8-44) U/L Alkaline Phosphatase 194 H (41-126) U/L Total Protein 6.0 L (6.2-8.2) g/dL Total Protein (PEP) (6.2-8.2) g/dL Albumin 3.00 L (3.80-4.90) g/dL Albumin (PEP) (3.80-4.90) g/dL Albumin/Globulin Ratio 1.00 L (1.60-3.17) g/dL [id number]-[id number] (0.10-0.40) g/dL KAYCE Screen POSITIVE H (NEGATIVE) Anti-Smooth Muscle Ab 24 H (<20) UNITS 04/14/20 04/15/20 04/15/20 Range/Units 09:12 05:29 05:29 PT 13.4 H (9.9-11.9) sec INR 1.26 H (0.90-1.11) Sodium 134 L (135-145) mmol/L Potassium 2.9 L (3.5-5.5) mmol/L Carbon Dioxide (21.6-31.8) mmol/L Anion Gap 16.20 H (4.00-12.00) mmol/L Glucose (70-110) mg/dL Calcium 8.3 L (8.7-10.3) mg/dL TIBC 147 L (228-460) ug/dL Total Bilirubin 8.1 H (0.2-1.2) mg/dL AST 140 H (13-35) U/L ALT (8-44) U/L Alkaline Phosphatase 189 H (41-126) U/L Total Protein 5.5 L (6.2-8.2) g/dL Total Protein (PEP) 5.9 L (6.2-8.2) g/dL Albumin 2.90 L (3.80-4.90) g/dL Albumin (PEP) 2.77 L (3.80-4.90) g/dL Albumin/Globulin Ratio 1.12 L (1.60-3.17) g/dL [id number] 0.41 H (0.10-0.40) g/dL KAYCE Screen (NEGATIVE) Anti-Smooth Muscle Ab (<20) UNITS Microbiology - Last 24 Hours (Table) 04/14/20 14:05 Gram Stain - Preliminary Paracentesis Fluid Body Fluid Culture - Preliminary 04/14/20 14:05 Anaerobic Culture - Preliminary Paracentesis Fluid Assessment and Plan Assessment: 1. New onset ascites with a history of moderate amount of alcohol consumption for several years duration. CT of the abdomen did show evidence of small amount of ascites and enlarged liver with diffuse fatty infiltrate. 2. Alcohol hepatitis with probable alcoholic cirrhosis of the liver, elevated LFTs and initial bilirubin at 10.9 and elevated serum transaminases with AST or than ALT, consistent with alcoholic liver disease 3. Hepatomegaly, inflammation likely responsible for abdominal pain 4. History of alcohol abuse 5. Mild coagulopathy secondary to underlying liver disease Plan: 1. Hepatitis serologies ordered, negative 2. Full serology ordered, negative to date. 3. Continue with Lasix 40 mg daily and Aldactone 50 mg daily 4. Low sodium diet 5. Await fluid cytology results 6. Repeat CMP, CBC and ammonia level 7. Lengthy discussion with the patient regarding long-term prognosis 8. Discussed the importance of Alcohol cessation The impression and plan of care has been dictated as directed. Dr. Consuelo Dotson I performed a history and examination of this patient, discussed the same with the dictator. I agree with the dictator's note ,documented as a scribe. Any additional findings or plans will be noted.
[2020-04-15] MEDS: POTASSIUM BICARBONATE/CIT AC 20 MEQ TABLET.EFF PO SCH ×3 (19:13→21:07)
[2020-04-16] MEDS: SODIUM CHLORIDE 0.9% 1,000 ML IV SCH ×3 (00:33→20:12)
[2020-04-16 04:58] LABS: Anisocytosis Slight; Basophils # (A) 0.1 k/uL (0-0.2); Basophils % (A) 1 %; Eosinophils # (A) 0.2 k/uL (0-0.7); Eosinophils % (A) 3 %; HCT 32.9 % (34.0-46.0); HGB 10.4 gm/dL (11.4-16.0); Lymphocytes % (A) 26 %; MCH 34.6 pg (25.0-35.0); MCHC 31.7 g/dL (31.0-37.0); MCV 109.2 fL (80.0-100.0); Mean Platelet Volume 9.2; Monocytes # (A) 0.6 k/uL (0-1.0); Monocytes % (A) 7 %; Neutrophils # (A) 4.8 k/uL (1.3-7.7); Neutrophils % (A) 62 %; Platelet Count 195 k/uL (150-450); RBC 3.02 m/uL (3.80-5.40); RDW 18.3 % (11.5-15.5); WBC 7.8 k/uL (3.8-10.6)
[2020-04-16 05:03] LABS: Macrocytosis Marked
[2020-04-16] MEDS: THIAMINE 100 MG in SODIUM CHLORIDE 0.9% 50 ML IVPB SCH ×2 (07:39→20:15)
[2020-04-16] MEDS: valACYclovir HCL 1,000 MG TABLET PO SCH ×3 (07:39→22:01)
[2020-04-16] MEDS: PANTOPRAZOLE 40 MG TABLET PO SCH (07:39)
[2020-04-16 10:04] LABS: Folate, Serum 4.2 ng/mL
[2020-04-16] MEDS: LACTULOSE 20 GM/30 ML CUP PO SCH ×3 (10:45→22:01)
[2020-04-16 10:55] LABS: African American GFR (CKD) 124.5 (60.0-200.0); Albumin 2.7 g/dL (3.80-4.90); Anion Gap 10.9 mmol/L (4.00-12.00); Calcium 8.2 mg/dL (8.7-10.3); Carbon Dioxide 27.1 mmol/L (21.6-31.8); Globulin 2.7 g/dL (1.6-3.3); Magnesium 1.5 mg/dL (1.5-2.4); Non-African American GFR(CKD) 107.4 (60.0-200.0); Potassium 3.3 mmol/L (3.5-5.5); Total Protein 5.4 g/dL (6.2-8.2)
--- NOTE | 2020-04-16 12:45 | P.PN ---
Subjective Progress Note Date: 04/16/20 Principal diagnosis: Abdominal distention, new onset ascites and jaundice This patient is a 55-year-old pleasant white female who is brought to the hospital because of abdominal distention with complaints of abdominal bloating, pain, and jaundice. The patient underwent a paracentesis. Cytology is pending. The patient states she still having significant abdominal distention and discomfort. She denies any nausea or vomiting. Objective - Vital Signs Vital signs: Vital Signs Temp 98.1 F 04/16/20 11:10 Pulse 115 H 04/16/20 11:10 Resp 18 04/16/20 11:10 BP 124/73 04/16/20 11:10 Pulse Ox 96 04/16/20 11:10 Intake & Output 04/15/20 04/16/20 04/16/20 18:59 06:59 18:59 Intake Total 650 1650 Balance 650 1650 Weight 69.1 kg Intake: Intake, IV Titration 50 50 Amount Thiamine 100 mg In Sodium 50 50 Chloride 0.9% 50 ml @ 100 mls/hr IVPB Q12HR [facility] Rx#:[id number] Oral 600 1600 Other: Voiding Method Toilet Toilet Toilet # Voids 2 3 - Exam General appearance: The patient is alert, oriented, in no acute distress. HET: Head is normocephalic and atraumatic. Conjunctiva pink. Sclera icteric. Neck: Supple without lymphadenopathy. Abdomen: Soft, tender to palpation especially in epigastric and right upper quadrant region, distended with bowel sounds. No guarding or rigidity. Skin: Jaundice Extremities: No pedal edema Neurological: No focal deficits. Alert and oriented 3. - Labs CBC & Chem 7: 04/16/20 04:43 04/16/20 04:43 Labs: Abnormal Lab Results - Last 24 Hours (Table) 04/14/20 04/16/20 04/16/20 Range/Units 09:12 04:43 04:43 RBC 3.02 L (3.80-5.40) m/uL Hgb 10.4 L (11.4-16.0) gm/dL Hct 32.9 L (34.0-46.0) % MCV 109.2 H (80.0-100.0) fL RDW 18.3 H (11.5-15.5) % Macrocytosis Marked A Potassium 3.3 L (3.5-5.5) mmol/L BUN 7.0 L (9.0-27.0) mg/dL Creatinine 0.5 L (0.6-1.5) mg/dL Calcium 8.2 L (8.7-10.3) mg/dL Total Bilirubin 7.0 H (0.2-1.2) mg/dL AST 150 H (13-35) U/L ALT 45 H (8-44) U/L Alkaline Phosphatase 190 H (41-126) U/L Total Protein 5.4 L (6.2-8.2) g/dL Albumin 2.70 L (3.80-4.90) g/dL Albumin (PEP) 2.77 L (3.80-4.90) g/dL Albumin/Globulin Ratio 1.00 L (1.60-3.17) g/dL Zotdl-3-Fcqkykpmp 0.41 H (0.10-0.40) g/dL Vitamin B12 1248.0 H (200.0-944.0) pg/mL TSH 8.170 H (0.350-5.500) uIU/mL Microbiology - Last 24 Hours (Table) 04/14/20 14:05 Gram Stain - Preliminary Paracentesis Fluid Body Fluid Culture - Preliminary Assessment and Plan Assessment: 1. New onset ascites with a history of moderate amount of alcohol consumption for several years duration. CT of the abdomen did show evidence of small amount of ascites and enlarged liver with diffuse fatty infiltrate. 2. Alcohol hepatitis with probable alcoholic cirrhosis of the liver, elevated LFTs and initial bilirubin at 10.9 and elevated serum transaminases with AST or than ALT, consistent with alcoholic liver disease 3. Hepatomegaly, inflammation likely responsible for abdominal pain 4. History of alcohol abuse 5. Mild coagulopathy secondary to underlying liver disease Plan: 1. Hepatitis serologies ordered, negative 2. Full serology ordered, negative to date. 3. Continue with Lasix 40 mg daily and Aldactone 50 mg daily 4. Low sodium diet 5. Await fluid cytology results 6. Repeat CMP, CBC and ammonia level 7. Lengthy discussion with the patient regarding long-term prognosis 8. Discussed the importance of Alcohol cessation 9. Patient may be discharged home from a gastroenterology standpoint is otherwise medically cleared. Patient will need close follow-up with gastr oenterology as an outpatient. The impression and plan of care has been dictated as directed. Dr. Consuelo Dotson I performed a history and examination of this patient, discussed the same with the dictator. I agree with the dictator's note ,documented as a scribe. Any additional findings or plans will be noted.
[2020-04-16] MEDS: MULTIVITAMINS, THERA 1 EACH TAB PO SCH (12:47)
[2020-04-16] MEDS: FOLIC ACID 1 MG TAB PO SCH (12:47)
[2020-04-16 13:20] VITALS: BMI 25.3
[2020-04-16] MEDS ORDERED: Potassium Replacement Protocol 1 EACH MISC MISCELLANE PRN ×2 (14:05→19:13)
[2020-04-16] MEDS ORDERED: Magnesium Replacement Protocol 1 EACH MISC MISCELLANE PRN (14:05)
--- NOTE | 2020-04-16 14:21 | P.PN ---
Subjective Progress Note Date: 04/16/20 Zandra Cleveland is a 55 yo F with PMH of GERD, HLD who presented to the ED on the recommendation of her PCP due to worsening abdominal bloating and pain. She reports that over the past few weeks she has noticed her abdomen protruding as well as nausea and abdominal pain when she sits upright. She discussed this with her PCP and had an abdominal US performed which was overall unremarkable although labs noted elevation of LFTs and CA-125 in the 500s. Pt denies regular alcohol use. On presentation vitals stable, labs with bilirubin 9.9, elevated AST, ALT, alk phos. CT abd/pelvis with hepatomegaly and diffuse liver enhancement. 04/15/20 status post paracentesis with 1.2 L of fluid drained yesterday, cu ltures/cytology pending. Tolerated procedure well. Today patient reports moderate "daily drinking of vodka instead of wine." Complains of abdominal pain, abdominal firmness more so on the bilateral upper quadrants. Continues on Aldactone and Lasix. INR trending down, 1.26. Sodium 134, potassium 2.9. T bili, LFTs improving. Ammonia level XXI. Albumin 2.9. Hepatitis serology reported nonreactive. 04/16/2020 ammonia level trending up, currently 29. Currently no confusion. Complains of bilateral upper quadrant abdominal tenderness. Denies nausea vomiting. Paracentesis cytology pending. Reports left leg/thigh numbness as a burning sensation. Evaluated by neurology, suggesting meralgia paresthetica probably related to fluid retention, possible peripheral polyneuropathy. T bili trending down, LFTs minimal change. Objective - Vital Signs Vital signs: Vital Signs Temp 98.1 F 04/16/20 11:10 Pulse 115 H 04/16/20 11:10 Resp 18 04/16/20 11:10 BP 124/73 04/16/20 11:10 Pulse Ox 96 04/16/20 11:10 Intake & Output 04/15/20 04/16/20 04/16/20 18:59 06:59 18:59 Intake Total 650 1650 Balance 650 1650 Weight 69.1 kg 69.1 kg Intake: Intake, IV Titration 50 50 Amount Thiamine 100 mg In Sodium 50 50 Chloride 0.9% 50 ml @ 100 mls/hr IVPB Q12HR [facility] Rx#:[id number] Oral 600 1600 Other: Voiding Method Toilet Toilet Toilet # Voids 2 3 - Exam General:A&Ox3, sitting up in bed, jaundiced, NAD. Vitals reviewed. Eyes: PERRL, EOMI, conjunctiva normal HENT: normocephalic, mucus membranes moist Neck: supple, no JVD Lungs: normal respiratory effort, essentially clear. CV: Regular rate and rhythm, no murmur. Peripheral pulses 2+. No edema Abdomen: soft, distended, mild tenderness bilateral upper quadrants, positive bowel sounds Skin: warm and dry. Neuro: Cranial nerves II through XII grossly intact , no focal deficits, bilateral feet M/S 5/5, strength and sensation grossly intact - Labs CBC & Chem 7: 04/16/20 04:43 04/16/20 04:43 Labs: Abnormal Lab Results - Last 24 Hours (Table) 04/16/20 04/16/20 Range/Units 04:43 04:43 RBC 3.02 L (3.80-5.40) m/uL Hgb 10.4 L (11.4-16.0) gm/dL Hct 32.9 L (34.0-46.0) % MCV 109.2 H (80.0-100.0) fL RDW 18.3 H (11.5-15.5) % Macrocytosis Marked A Potassium 3.3 L (3.5-5.5) mmol/L BUN 7.0 L (9.0-27.0) mg/dL Creatinine 0.5 L (0.6-1.5) mg/dL Calcium 8.2 L (8.7-10.3) mg/dL Total Bilirubin 7.0 H (0.2-1.2) mg/dL AST 150 H (13-35) U/L ALT 45 H (8-44) U/L Alkaline Phosphatase 190 H (41-126) U/L Total Protein 5.4 L (6.2-8.2) g/dL Albumin 2.70 L (3.80-4.90) g/dL Albumin/Globulin Ratio 1.00 L (1.60-3.17) g/dL Vitamin B12 1248.0 H (200.0-944.0) pg/mL TSH 8.170 H (0.350-5.500) uIU/mL Microbiology - Last 24 Hours (Table) 04/14/20 14:05 Gram Stain - Preliminary Paracentesis Fluid Body Fluid Culture - Preliminary Assessment and Plan Assessment: (1) Ascites, abdominal with hepatomegaly and elevated LFTs, status post paracentesis Current Visit: Yes Status: Acute Code(s): R18.8 - OTHER ASCITES SNOMED Code(s): 607920840 (2) GERD (gastroesophageal reflux disease) Current Visit: Yes Status: Acute Code(s): K21.9 - GASTRO-ESOPHAGEAL REFLUX DISEASE WITHOUT ESOPHAGITIS SNOMED Code(s): 195022799 (3) Elevated LFTs Current Visit: Yes Status: Acute Code(s): R79.89 - OTHER SPECIFIED ABNORMAL FINDINGS OF BLOOD CHEMISTRY SNOMED Code(s): 049463424 (4) Transaminitis Current Visit: Yes Status: Acute Code(s): R74.01 - SNOMED Code(s): 149261736 (5) chronic liver disease (6) alcoholic liver cirrhosis and patient with ongoing alcohol abuse (7) coagulopathy, mild secondary to the above (8) anemia of chronic disease (9) acute alcoholic hepatitis (10) left outer thigh numbness,paresthesia,polyneuropathy,meralgia paresthetica suspect secondary to fluid retention from above (11) hypokalemia (12) hypomagnesemia Plan: Continue on current medication regime ,monitoring and symptomatic treatment. Potassium and magnesium supplementation as per previously ordered replacement protocols. Lactulose initiated with close monitoring of ammonia levels.close monitoring of LFTs/T bili -repeat labs ordered for a.m. continue folic acid, multivitamin, thiamine, Aldactone, Lasix and PPI .low-sodium diet.Paracentesis fluid analysis/cytology results pending. Alcohol abstinence reinforced. Discharge planning in progress for tomorrow pending GI, neurology clearance. The impression and plan of care has been dictated as directed. : I performed a history and examination of this patient, discussed the same with the dictator. I agree with the dictator's note ,documented as a scribe. Any additional findings or plans will be noted.
[2020-04-16 14:42] LABS: ANA Pattern Speckled
--- NOTE | 2020-04-16 14:59 | P.PN ---
Subjective Progress Note Date: 04/16/20 Patient denies any changes in her condition. Still with weakness of the hip flexion, and paresthesias in the left lateral thigh region. Denies headache. Objective - Vital Signs Vital signs: Vital Signs Temp 98.1 F 04/16/20 11:10 Pulse 115 H 04/16/20 11:10 Resp 18 04/16/20 11:10 BP 124/73 04/16/20 11:10 Pulse Ox 96 04/16/20 11:10 Intake & Output 04/15/20 04/16/20 04/16/20 18:59 06:59 18:59 Intake Total 650 1650 Balance 650 1650 Weight 69.1 kg 69.1 kg Intake: Intake, IV Titration 50 50 Amount Thiamine 100 mg In Sodium 50 50 Chloride 0.9% 50 ml @ 100 mls/hr IVPB Q12HR [facility] Rx#:[id number] Oral 600 1600 Other: Voiding Method Toilet Toilet Toilet # Voids 2 3 - Exam Patient is a middle aged female, laying comfortably in the bed. Mental status, speech and language functions are completely normal. Peripheral edema almost resolved in the distal lower extremities. Detail testing deferred. - Labs CBC & Chem 7: 04/16/20 04:43 04/16/20 04:43 Labs: Abnormal Lab Results - Last 24 Hours (Table) 04/16/20 04/16/20 Range/Units 04:43 04:43 RBC 3.02 L (3.80-5.40) m/uL Hgb 10.4 L (11.4-16.0) gm/dL Hct 32.9 L (34.0-46.0) % MCV 109.2 H (80.0-100.0) fL RDW 18.3 H (11.5-15.5) % Macrocytosis Marked A Potassium 3.3 L (3.5-5.5) mmol/L BUN 7.0 L (9.0-27.0) mg/dL Creatinine 0.5 L (0.6-1.5) mg/dL Calcium 8.2 L (8.7-10.3) mg/dL Total Bilirubin 7.0 H (0.2-1.2) mg/dL AST 150 H (13-35) U/L ALT 45 H (8-44) U/L Alkaline Phosphatase 190 H (41-126) U/L Total Protein 5.4 L (6.2-8.2) g/dL Albumin 2.70 L (3.80-4.90) g/dL Albumin/Globulin Ratio 1.00 L (1.60-3.17) g/dL Vitamin B12 1248.0 H (200.0-944.0) pg/mL TSH 8.170 H (0.350-5.500) uIU/mL Microbiology - Last 24 Hours (Table) 04/14/20 14:05 Gram Stain - Preliminary Paracentesis Fluid Body Fluid Culture - Preliminary Assessment and Plan Assessment: * Meralgia paresthetica, left side, likely due to significant fluid retention, peripheral edema. Rule out peripheral poly-neuropathy * History of alcoholism. * Chronic liver disease with ascites. Plan: * Suggest appropriate measures to remove excessive fluid/edema will help with her left meralgia paresthetica. * B12 1248, folate 4.2 which is low, TSH is elevated 8.17, normal free T4 1.20. Vitamin B6, hemoglobin A1c and vitamin B1 levels still pending. * We will start folate replacement. * CK 115 and aldolase pending. * Strongly recommend abstinence from alcohol, as alcohol may be contributing to polyneuropathy. * Neurology will follow.
[2020-04-16] MEDS: POTASSIUM CHLORIDE ER 20 MEQ TAB.ER PO SCH ×4 (15:24→20:15)
[2020-04-16] MEDS: MAGNESIUM SULFATE-D5W PMX 1 GM in DEXTROSE/WATER 1 100ML.BAG IVPB SCH ×2 (15:24→16:47)
[2020-04-17] MEDS ORDERED: POTASSIUM CHLORIDE ER 20 MEQ TAB.ER PO SCH
[2020-04-17 04:58] VITALS: RESP 18
[2020-04-17] MEDS: SODIUM CHLORIDE 0.9% 1,000 ML IV SCH (05:51)
[2020-04-17] MEDS ORDERED: FUROSEMIDE 40 MG TAB PO SCH (09:00)
[2020-04-17] MEDS ORDERED: SPIRONOLACTONE 25 MG TAB PO SCH (09:00)
[2020-04-17] MEDS: LACTULOSE 20 GM/30 ML CUP PO SCH ×2 (09:29→09:32)
[2020-04-17] MEDS: THIAMINE 100 MG in SODIUM CHLORIDE 0.9% 50 ML IVPB SCH (09:29)
[2020-04-17] MEDS: PANTOPRAZOLE 40 MG TABLET PO SCH (09:30)
[2020-04-17] MEDS: valACYclovir HCL 1,000 MG TABLET PO SCH (09:30)
[2020-04-17] MEDS ORDERED: PHYTONADIONE ORAL 5 MG/5 ML ORAL.SYRG PO STA (09:46)
[2020-04-17] MEDS ORDERED: diphenhydrAMINE 25 MG CAP PO PRN (09:47)
--- NOTE | 2020-04-17 09:58 | P.DS ---
Providers Date of admission: 04/13/20 14:26 Expected date of discharge: 04/17/20 Attending physician: Ze Soto MD Consults: 04/13/20 14:16 Consult Physician Routine Consulting Provider: Lissette Dotson Consult Reason/Comments: Hyperbilirubinemia, transaminitis Do you want consulting provider notified?: Yes 04/15/20 09:27 Consult Physician Routine Consulting Provider: Lilli Bush Consult Reason/Comments: left outer thigh numbness Do you want consulting provider notified?: Yes Primary care physician: Sherley Christensen [place] [facility] Course: Final Diagnoses: (1) Ascites, abdominal with hepatomegaly and elevated LFTs, status post paracentesis Current Visit: Yes Status: Acute Code(s): R18.8 - OTHER ASCITES SNOMED Code(s): 855788665 (2) GERD (gastroesophageal reflux disease) Current Visit: Yes Status: Acute Code(s): K21.9 - GASTRO-ESOPHAGEAL REFLUX DISEASE WITHOUT ESOPHAGITIS SNOMED Code(s): 567875780 (3) Elevated LFTs Current Visit: Yes Status: Acute Code(s): R79.89 - OTHER SPECIFIED ABNORMAL FINDINGS OF BLOOD CHEMISTRY SNOMED Code(s): 705319394 (4) Transaminitis Current Visit: Yes Status: Acute Code(s): R74.01 - SNOMED Code(s): 105719184 (5) chronic liver disease (6) alcoholic liver cirrhosis and patient with ongoing alcohol abuse (7) coagulopathy, mild secondary to the above (8) anemia of chronic disease (9) acute alcoholic hepatitis (10) left outer thigh numbness,paresthesia,polyneuropathy,meralgia paresthetica suspect secondary to fluid retention from above (11) hypokalemia (12) hypomagnesemia (13) contact dermatitis on back, legs Hospital course:Zandra Cleveland is a 55 yo F with PMH of GERD, HLD who presented to the ED on the recommendation of her PCP due to worsening abdominal bloating and pain. She reports that over the past few weeks she has noticed her abdomen protruding as well as nausea and abdominal pain when she sits upright. She dis cussed this with her PCP and had an abdominal US performed which was overall unremarkable although labs noted elevation of LFTs and CA-125 in the 500s. Pt denies regular alcohol use. On presentation vitals stable, labs with bilirubin 9.9, elevated AST, ALT, alk phos. CT abd/pelvis with hepatomegaly and diffuse liver enhancement. 04/15/20 status post paracentesis with 1.2 L of fluid drained yesterday, cultures/cytology pending. Tolerated procedure well. Today patient reports moderate "daily drinking of vodka instead of wine." Complains of abdominal pain, abdominal firmness more so on the bilateral upper quadrants. Continues on Aldactone and Lasix. INR trending down, 1.26. Sodium 134, potassium 2.9. T bili, LFTs improving. Ammonia level XXI. Albumin 2.9. Hepatitis serology reported nonreactive. 04/16/2020 ammonia level trending up, currently 29. Currently no confusion. Complains of bilateral upper quadrant abdominal tenderness. Denies nausea vomiting. Paracentesis cytology pending. Reports left leg/thigh numbness as a burning sensation. Evaluated by neurology, suggesting meralgia paresthetica probably related to fluid retention, possible peripheral polyneuropathy. T bili trending down, LFTs minimal change. Elevated thyroid levels, recheck outpatient in 2 weeks. Significant clinical improvement. Cleared by all consults for discharge. Patient is being disc harged home in a stable condition with guarded prognosis. Alcohol abstinence reinforced. The impression and plan of care has been dictated as directed. : I performed a history and examination of this patient, discussed the same with the dictator. I agree with the dictator's note ,documented as a scribe. Any additional findings or plans will be noted. Patient Condition at Discharge: Stable Plan - Discharge Summary Discharge Rx Participant: No New Discharge Prescriptions: New Spironolactone [Aldactone] 50 mg PO DAILY #60 tab Lactulose [Cephulac] 20 gm PO TID #900 ml Folic Acid 1 mg PO DAILY@1200 #30 tab Furosemide [Lasix] 40 mg PO DAILY #30 tab Multivitamins, Thera [Multivitamin (formulary)] 1 each PO DAILY@1200 #30 tab Thiamine [Vitamin B-1] 100 mg PO DAILY #30 tablet diphenhydrAMINE [Benadryl] 25 mg PO TID PRN #12 cap PRN Reason: Rash Continue Omeprazole 40 mg PO DAILY Atorvastatin [Lipitor] 20 mg PO DAILY Discontinued Sulfamethox-Tmp 800-160Mg [Bactrim DS 800-160 mg] 1 tab PO Q12HR valACYclovir HCL [Valtrex] 1,000 mg PO TID Discharge Medication List Omeprazole 40 mg PO DAILY 06/09/16 [History] Atorvastatin [Lipitor] 20 mg PO DAILY 04/13/20 [History] Folic Acid 1 mg PO DAILY@1200 #30 tab 04/17/20 [Rx] Furosemide [Lasix] 40 mg PO DAILY #30 tab 04/17/20 [Rx] Lactulose [Cephulac] 20 gm PO TID #900 ml 04/17/20 [Rx] Multivitamins, Thera [Multivitamin (formulary)] 1 each PO DAILY@1200 #30 tab 04/17/20 [Rx] Spironolactone [Aldactone] 50 mg PO DAILY #60 tab 04/17/20 [Rx] Thiamine [Vitamin B-1] 100 mg PO DAILY #30 tablet 04/17/20 [Rx] diphenhydrAMINE [Benadryl] 25 mg PO TID PRN #12 cap 04/17/20 [Rx] Follow up Appointment(s)/Referral(s): Ze Soto MD [STAFF PHYSICIAN] - 3 Days (Please schedule prior to discharge) Laxmi Hobbs NPC [Nurse Practitioner] - 04/24/20 8:00 am Ambulatory/Diagnostic Orders: Complete Blood Count w/diff [LAB.AMB] Time Frame: 3 Days, Location: None Selected Activity/Diet/Wound Care/Special Instructions: No Alcohol. Recheck thyroid levels in 2 weeks with PCP.
[2020-04-17 10:18] LABS: African American GFR (CKD) 124.5 (60.0-200.0); Albumin 2.7 g/dL (3.80-4.90); Anion Gap 6.4 mmol/L (4.00-12.00); Calcium 8.5 mg/dL (8.7-10.3); Carbon Dioxide 27.6 mmol/L (21.6-31.8); Globulin 2.7 g/dL (1.6-3.3); Non-African American GFR(CKD) 107.4 (60.0-200.0); Potassium 3.7 mmol/L (3.5-5.5); Total Bilirubin 6.1 mg/dL (0.2-1.2); Total Protein 5.4 g/dL (6.2-8.2)
[2020-04-17 12:26] VITALS: BP 103/65; PULSE 102; TEMP 98.4
[2020-04-17] MEDS: FOLIC ACID 1 MG TAB PO SCH (13:02)
[2020-04-17] MEDS: MULTIVITAMINS, THERA 1 EACH TAB PO SCH (13:02)
[2020-04-17 15:45] LABS: INR 1.23 (0.90-1.11); Prothrombin Time 13.1 sec (9.9-11.9)
== END 2020-04-17 14:23 | disposition home or self-care (01) | DRG 433 ==
LOC: EC 10:54 → 6NMEDSUR 14:26
PROVIDERS: ADMIT Family Medicine; ATTEND Family Medicine
PROC: 0W9G3ZX Drainage of Peritoneal Cavity, Percutaneous Approach, Diagnostic (ICD-10-PCS; principal; 2020-04-14)
DX: K70.31 Alcoholic cirrhosis of liver with ascites (principal); D68.4 Acquired coagulation factor deficiency; K70.11 Alcoholic hepatitis with ascites; K21.9 Gastro-esophageal reflux disease without esophagitis; I10 Essential (primary) hypertension; M79.7 Fibromyalgia; F41.9 Anxiety disorder, unspecified; F32.9 Major depressive disorder, single episode, unspecified; E78.5 Hyperlipidemia, unspecified; E83.42 Hypomagnesemia; D50.9 Iron deficiency anemia, unspecified; E87.6 Hypokalemia; G57.10 Meralgia paresthetica, unspecified lower limb; D63.8 Anemia in other chronic diseases classified elsewhere; G62.9 Polyneuropathy, unspecified; F10.10 Alcohol abuse, uncomplicated; D25.9 Leiomyoma of uterus, unspecified; L25.9 Unspecified contact dermatitis, unspecified cause; Z79.899 Other long term (current) drug therapy; Z90.49 Acquired absence of other specified parts of digestive tract; Z87.891 Personal history of nicotine dependence; Z87.738 Personal history of other specified (corrected) congenital malformations of digestive system; Z82.49 Family history of ischemic heart disease and other diseases of the circulatory system; Z98.890 Other specified postprocedural states; Z83.79 Family history of other diseases of the digestive system
CPT/HCPCS: 36415; 49083; 74177; 80053; 80074; 81003; 82042; 82085; 82103; 82105; 82140; 82150; 82390; 82550; 82607; 82746; 83036; 83516; 83540; 83550; 83690; 83735; 84132; 84157; 84165; 84207; 84425; 84439; 84443; 85025; 85027; 85610; 85730; 86038; 86039; 86376; 87070; 87075; 87205; 88108; 88305; 88341; 88342; 89050; 96361; 96374; 96375; 99285

== ENCOUNTER → 2020-04-20 | Outpatient (CLI) | payer OTHER ==
[2020-04-20 09:56] LABS: Anisocytosis Slight; Basophils # (A) 0.1 k/uL (0-0.2); Basophils % (A) 1 %; Eosinophils # (A) 0.2 k/uL (0-0.7); Eosinophils % (A) 3 %; HCT 37.8 % (34.0-46.0); HGB 12.2 gm/dL (11.4-16.0); Lymphocytes % (A) 22 %; MCH 36.1 pg (25.0-35.0); MCHC 32.1 g/dL (31.0-37.0); MCV 112.3 fL (80.0-100.0); Macrocytosis Marked; Mean Platelet Volume 9.6; Monocytes # (A) 0.7 k/uL (0-1.0); Monocytes % (A) 7 %; Neutrophils % (A) 66 %; Platelet Count 173 k/uL (150-450); RBC 3.37 m/uL (3.80-5.40); RDW 18.8 % (11.5-15.5); WBC 9.1 k/uL (3.8-10.6)
[2020-04-20 15:17] LABS: Albumin 2.9 g/dL (3.80-4.90); Albumin/Globulin Ratio 0.97 (1.60-3.17); Anion Gap 11.5 mmol/L (4.00-12.00); Calcium 8.8 mg/dL (8.7-10.3); Carbon Dioxide 25.5 mmol/L (21.6-31.8); Non-African American GFR(CKD) 115.6 (60.0-200.0); Potassium 3.2 mmol/L (3.5-5.5); Total Bilirubin 7.5 mg/dL (0.3-1.2); Total Protein 5.9 g/dL (6.2-8.2)
[2020-04-20 15:28] LABS: INR 1.17 (0.90-1.11); Prothrombin Time 12.4 sec (9.9-11.9)
== END | disposition home or self-care (01) ==
LOC: LABWHC1 08:49
PROVIDERS: ATTEND Nurse Practitioner
DX: K70.10 Alcoholic hepatitis without ascites (principal); D68.9 Coagulation defect, unspecified; D64.9 Anemia, unspecified
CPT/HCPCS: 36415; 80053; 85025; 85610

== ENCOUNTER → 2020-05-20 | Outpatient (CLI) | payer OTHER ==
[2020-05-20 09:40] LABS: Basophils # (A) 0.1 k/uL (0-0.2); Basophils % (A) 2 %; Eosinophils # (A) 0.3 k/uL (0-0.7); Eosinophils % (A) 4 %; HCT 38.7 % (34.0-46.0); HGB 12.9 gm/dL (11.4-16.0); Lymphocytes # (A) 2.8 k/uL (1.0-4.8); Lymphocytes % (A) 35 %; MCH 35.4 pg (25.0-35.0); MCHC 33.3 g/dL (31.0-37.0); Macrocytosis Moderate; Mean Platelet Volume 8.3; Monocytes # (A) 0.6 k/uL (0-1.0); Monocytes % (A) 8 %; Neutrophils # (A) 3.8 k/uL (1.3-7.7); Neutrophils % (A) 49 %; Platelet Count 235 k/uL (150-450); RBC 3.64 m/uL (3.80-5.40); RDW 14.5 % (11.5-15.5); WBC 7.9 k/uL (3.8-10.6)
[2020-05-20 09:45] LABS: MCV 106.2 fL (80.0-100.0)
[2020-05-20 15:08] LABS: African American GFR (CKD) 124.5 (60.0-200.0); Albumin 3.5 g/dL (3.80-4.90); Anion Gap 10.9 mmol/L (4.00-12.00); Calcium 9.4 mg/dL (8.7-10.3); Carbon Dioxide 26.1 mmol/L (21.6-31.8); Globulin 3.5 g/dL (1.6-3.3); Non-African American GFR(CKD) 107.4 (60.0-200.0); Potassium 3.5 mmol/L (3.5-5.5); Total Bilirubin 2.3 mg/dL (0.3-1.2)
[2020-05-20 16:05] LABS: INR 1.18 (0.90-1.11); Prothrombin Time 12.6 sec (9.9-11.9)
== END | disposition home or self-care (01) ==
LOC: LABWHC1 08:50
PROVIDERS: ATTEND Nurse Practitioner
DX: K70.9 Alcoholic liver disease, unspecified (principal)
CPT/HCPCS: 36415; 80053; 82140; 85025; 85610

== ENCOUNTER → 2020-06-05 | Outpatient (CLI) | payer OTHER ==
--- NOTE | 2020-06-05 07:50 | US ---
EXAMINATION TYPE: US liver DATE OF EXAM: 06/05/2020 COMPARISON: CT April 13, 2020 CLINICAL HISTORY: K70.9 Alcoholic liver disease. Hx liver disease. Hx ascites. GB removed. EXAM MEASUREMENTS: Liver Length: 13.8 cm CBD: 0.5 cm Right Kidney: 9.6 x 5.2 x 5.1 cm Pancreas: wnl Liver: wnl Gallbladder: Surgically absent Evidence for sonographic Coronado's sign: neg CBD: wnl Right Kidney: No hydronephrosis or masses seen Visualized pancreas is slightly heterogeneous in appearance without mass or ductal dilatation on imag es saved. Visualized liver is heterogeneously hyperechoic with small amount of surrounding ascites re demonstrated. Liver size within normal limits. Evaluation for focal masses suboptimal due to the hete rogeneity. Gallbladder surgically absent. Right kidney shows no hydronephrosis. IMPRESSION: Heterogeneous hyperechoic appearance of the liver felt less prominent than recent CT cons istent with underlying hepatocellular disease or diffuse fatty infiltration. Small amount of surround ing perihepatic ascites remains present.
== END | disposition home or self-care (01) ==
LOC: RADUSWWP 07:05
PROVIDERS: ATTEND Internal Medicine Gastroenterology
DX: R18.8 Other ascites (principal); R93.2 Abnormal findings on diagnostic imaging of liver and biliary tract
CPT/HCPCS: 76705

== ENCOUNTER → 2020-10-22 | Outpatient (CLI) | payer OTHER ==
[2020-10-22 15:30] LABS: Basophils # (A) 0.09 X 10*3/uL (0.00-0.10); Basophils % (A) 1.6 %; Eosinophils # (A) 0.69 X 10*3/uL (0.04-0.35); Eosinophils % (A) 12.3 %; HCT 34.5 % (37.2-46.3); HGB 11.1 g/dL (12.0-15.0); Lymphocytes # (A) 2.07 X 10*3/uL (0.90-5.00); Lymphocytes % (A) 36.8 %; MCH 29.8 pg (27.0-32.0); MCHC 32.2 g/dL (32.0-37.0); MCV 92.5 fL (80.0-97.0); Mean Platelet Volume 11.3 fL (9.5-12.2); Monocytes % (A) 10.7 %; Neutrophils # (A) 2.17 X 10*3/uL (1.80-7.70); Neutrophils % (A) 38.4 %; Platelet Count 159 X 10*3/uL (140-440); RBC 3.73 X 10*6/uL (4.10-5.20); RDW 13.4 % (11.5-14.5); WBC 5.63 X 10*3/uL (4.50-10.00)
[2020-10-22 16:00] LABS: INR 1.08 (0.90-1.11); Prothrombin Time 11.7 sec (9.9-11.9)
[2020-10-22 20:15] LABS: Anti-DNA, DS unit <1.0 IU/mL; Anti-Smith Ab Interp NEGATIVE (NEGATIVE); Cyclic Citrull Pep IgG Unit 0.7 U/mL; Cyclic Citrullinated Pep IgG NEGATIVE (NEGATIVE); DNA Double-Stranded NEGATIVE (NEGATIVE); JO-1 IgG Antibody <0.2 AI; Scleroderma SC-70 Ab <0.2 AI
[2020-10-22 21:54] LABS: Alpha Fetoprotein, Tumor Mkr 3.3 ng/mL (0.0-7.9)
[2020-10-22 23:16] LABS: African American GFR (CKD) 117.3 (60.0-200.0); Albumin 3.9 g/dL (3.80-4.90); Albumin/Globulin Ratio 1.39 (1.60-3.17); Anion Gap 9.2 mmol/L (4.00-12.00); BUN/Creat Ratio 21.67 Ratio (12.00-20.00); Calcium 10.2 mg/dL (8.7-10.3); Carbon Dioxide 24.8 mmol/L (21.6-31.8); Globulin 2.8 g/dL (1.6-3.3); Non-African American GFR(CKD) 101.2 (60.0-200.0); Potassium 4.1 mmol/L (3.5-5.5); Total Bilirubin 1.6 mg/dL (0.3-1.2); Total Protein 6.7 g/dL (6.2-8.2)
[2020-10-25 13:48] LABS: ANA Pattern Homogeneous
== END | disposition home or self-care (01) ==
LOC: LABWHC1 07:10
PROVIDERS: ATTEND Nurse Practitioner
DX: K70.9 Alcoholic liver disease, unspecified (principal); M25.50 Pain in unspecified joint
CPT/HCPCS: 36415; 80053; 82105; 83516; 85025; 85610; 86038; 86039; 86200; 86225; 86235

== ENCOUNTER → 2020-11-03 | Outpatient (CLI) | payer OTHER ==
[2020-11-03 17:18] LABS: Basophils # (A) 0.09 X 10*3/uL (0.00-0.10); Basophils % (A) 1.5 %; Eosinophils # (A) 0.04 X 10*3/uL (0.04-0.35); Eosinophils % (A) 0.7 %; HCT 40.7 % (37.2-46.3); HGB 12.8 g/dL (12.0-15.0); Lymphocytes # (A) 2.21 X 10*3/uL (0.90-5.00); Lymphocytes % (A) 37.1 %; MCH 29.2 pg (27.0-32.0); MCHC 31.4 g/dL (32.0-37.0); MCV 92.9 fL (80.0-97.0); Mean Platelet Volume 11.6 fL (9.5-12.2); Monocytes # (A) 0.74 X 10*3/uL (0.20-1.00); Monocytes % (A) 12.4 %; Neutrophils # (A) 2.86 X 10*3/uL (1.80-7.70); Neutrophils % (A) 48.1 %; Platelet Count 156 X 10*3/uL (140-440); RBC 4.38 X 10*6/uL (4.10-5.20); RDW 13.5 % (11.5-14.5); WBC 5.95 X 10*3/uL (4.50-10.00)
[2020-11-04 03:30] LABS: African American GFR (CKD) 111.5 (60.0-200.0); Albumin/Globulin Ratio 1.25 (1.60-3.17); Anion Gap 12.1 mmol/L (4.00-12.00); BUN/Creat Ratio 18.57 Ratio (12.00-20.00); Calcium 9.5 mg/dL (8.7-10.3); Carbon Dioxide 22.9 mmol/L (21.6-31.8); Globulin 3.2 g/dL (1.6-3.3); Non-African American GFR(CKD) 96.2 (60.0-200.0); Potassium 4.3 mmol/L (3.5-5.5); Total Bilirubin 1.7 mg/dL (0.3-1.2); Total Protein 7.2 g/dL (6.2-8.2)
== END | disposition home or self-care (01) ==
LOC: LABWHC1 09:31
PROVIDERS: ATTEND Nurse Practitioner
DX: K70.9 Alcoholic liver disease, unspecified (principal)
CPT/HCPCS: 36415; 80053; 85025

== ENCOUNTER → 2020-11-04 | Outpatient (CLI) | payer OTHER | END | disposition home or self-care (01) | LOC: LABWHC1 08:38 | PROVIDERS: ATTEND Nurse Practitioner | DX: K70.9 Alcoholic liver disease, unspecified (principal); R76.8 Other specified abnormal immunological findings in serum; R89.4 Abnormal immunological findings in specimens from other organs, systems and tissues | CPT/HCPCS: 36415; 83516; 86038; 86039 ==

== ENCOUNTER → 2021-04-16 | Outpatient (CLI) | payer OTHER ==
--- NOTE | 2021-04-16 09:03 | US ---
EXAMINATION TYPE: US liver DATE OF EXAM: 04/16/2021 COMPARISON: CT April 13, 2020. Ultrasound liver June 05, 2020 CLINICAL HISTORY: K70.9 alcoholic liver disease. EXAM MEASUREMENTS: Liver Length: 10.4 cm Gallbladder Wall: Surgically absent CBD: 0.9 cm Right Kidney: 9.9 x 3.9 x 5.4 cm Pancreas: visualized portions wnl Liver: wnl Gallbladder: Surgically absent CBD: wnl Right Kidney: No hydronephrosis or masses seen Visualized portion of pancreas are unremarkable. Visualized liver is slightly heterogeneous without d iscrete mass or ductal dilatation. It is more homogeneous on current study without surrounding ascite s. It is not enlarged in size. IMPRESSION: No surrounding ascites. Improved appearance of liver without biliary dilatation or obviou s suspicious new focal mass.
== END | disposition home or self-care (01) ==
LOC: RADUSWWP 08:17
PROVIDERS: ATTEND Internal Medicine Gastroenterology
DX: K70.9 Alcoholic liver disease, unspecified (principal)
CPT/HCPCS: 76705

== ENCOUNTER → 2021-04-26 | Outpatient (CLI) | payer OTHER ==
[2021-04-26 14:49] LABS: Basophils % (A) 1.8 %; Eosinophils # (A) 0.37 X 10*3/uL (0.04-0.35); Eosinophils % (A) 6.6 %; Lymphocytes # (A) 2.32 X 10*3/uL (0.90-5.00); Lymphocytes % (A) 41.4 %; MCHC 31.7 g/dL (32.0-37.0); MCV 97.6 fL (80.0-97.0); Mean Platelet Volume 11.4 fL (9.5-12.2); Monocytes # (A) 0.62 X 10*3/uL (0.20-1.00); Monocytes % (A) 11.1 %; Neutrophils # (A) 2.18 X 10*3/uL (1.80-7.70); Neutrophils % (A) 38.9 %; Platelet Count 162 X 10*3/uL (140-440); RDW 12.9 % (11.5-14.5)
[2021-04-26 16:21] LABS: African American GFR (CKD) 94.2 (60.0-200.0); Albumin 4.2 g/dL (3.8-4.9); Albumin/Globulin Ratio 1.5 (1.60-3.17); Anion Gap 14.6 mmol/L (4.00-12.00); BUN/Creat Ratio 22.63 Ratio (12.00-20.00); Blood Urea Nitrogen 18.1 mg/dL (9.0-27.0); Calcium 9.7 mg/dL (8.7-10.3); Carbon Dioxide 20.4 mmol/L (21.6-31.8); Globulin 2.8 g/dL (1.6-3.3); Non-African American GFR(CKD) 81.3 (60.0-200.0); Potassium 4.4 mmol/L (3.5-5.5); Total Bilirubin 1.5 mg/dL (0.30-1.20)
== END | disposition home or self-care (01) ==
LOC: LABWHC1 07:52
PROVIDERS: ATTEND Internal Medicine Gastroenterology
DX: K70.9 Alcoholic liver disease, unspecified (principal)
CPT/HCPCS: 36415; 80053; 85025

== ENCOUNTER → 2021-06-23 | Outpatient (CLI) | payer OTHER ==
--- NOTE | 2021-06-28 13:30 | MM ---
Reason for exam: screening (asymptomatic). Last mammogram was performed 2 years and 7 months ago. History: Patient is postmenopausal, has history of other cancer at age 50, and is nulliparous. Physical Findings: A clinical breast exam by your physician is recommended on an annual basis and results should be correlated with mammographic findings. MG Screening Mammo w CAD Bilateral CC and MLO view(s) were taken. Prior study comparison: November 22, 2018, mammogram, performed at [facility]. October 18, 2018, mammogram, performed at [facility]. No significant changes when compared with prior studies. ASSESSMENT: Benign, BI-RAD 2 RECOMMENDATION: Routine screening mammogram of both breasts in 1 year.
== END | disposition home or self-care (01) ==
LOC: RADMAMWWP 09:13
PROVIDERS: ATTEND Family Medicine
DX: Z12.31 Encounter for screening mammogram for malignant neoplasm of breast (principal); Z78.0 Asymptomatic menopausal state
CPT/HCPCS: 77067

== ENCOUNTER → 2021-10-11 | Outpatient (CLI) | payer OTHER ==
--- NOTE | 2021-10-11 08:49 | US ---
EXAMINATION TYPE: US liver DATE OF EXAM: 10/11/2021 COMPARISON: CLINICAL HISTORY: K70.9 Alcoholic liver disease. GB removed EXAM MEASUREMENTS: Liver Length: 12.5 cm CBD: 0.7 cm Right Kidney: 9.4 x 5.0 x 4.9 cm Pancreas: wnl Liver: Appears coarse Gallbladder: Surgically absent Evidence for sonographic Coronado's sign: neg CBD: wnl Right Kidney: No hydronephrosis or masses seen IMPRESSION: Probable hepatic steatosis correlate with hepatic function testing.
== END | disposition home or self-care (01) ==
LOC: RADUSWWP 07:59
PROVIDERS: ATTEND Internal Medicine Gastroenterology
DX: K70.9 Alcoholic liver disease, unspecified (principal)
CPT/HCPCS: 76705

== ENCOUNTER → 2021-10-11 | Outpatient (CLI) | payer OTHER ==
[2021-10-11 14:41] LABS: Basophils # (A) 0.05 X 10*3/uL (0.00-0.10); Eosinophils # (A) 0.01 X 10*3/uL (0.04-0.35); Eosinophils % (A) 0.2 %; HCT 43.3 % (37.2-46.3); HGB 13.6 g/dL (12.0-15.0); Immature Grans, Automated 0.2 %; Lymphocytes # (A) 2.13 X 10*3/uL (0.90-5.00); Lymphocytes % (A) 40.6 %; MCH 30.4 pg (27.0-32.0); MCHC 31.4 g/dL (32.0-37.0); MCV 96.9 fL (80.0-97.0); Mean Platelet Volume 11.3 fL (9.5-12.2); Monocytes # (A) 0.55 X 10*3/uL (0.20-1.00); Monocytes % (A) 10.5 %; NRBC Per 100 WBC 0 /100 WBCS (0.0-0.0); Neutrophils # (A) 2.49 X 10*3/uL (1.80-7.70); Neutrophils % (A) 47.5 %; Platelet Count 141 X 10*3/uL (140-440); RBC 4.47 X 10*6/uL (4.10-5.20); WBC 5.24 X 10*3/uL (4.50-10.00)
[2021-10-11 14:51] LABS: African American GFR (CKD) 113.5 (60.0-200.0); Albumin/Globulin Ratio 1.61 (1.60-3.17); BUN/Creat Ratio 26.19 Ratio (12.00-20.00); Calcium 9.6 mg/dL (8.7-10.3); Carbon Dioxide 22.7 mmol/L (20.0-27.5); Globulin 2.5 g/dL (1.6-3.3); Non-African American GFR(CKD) 97.9 (60.0-200.0); Total Bilirubin 1.1 mg/dL (0.30-1.20); Total Protein 6.5 g/dL (6.2-8.2)
== END | disposition home or self-care (01) ==
LOC: LABWHC1 08:19
PROVIDERS: ATTEND Internal Medicine Gastroenterology
DX: K70.9 Alcoholic liver disease, unspecified (principal)
CPT/HCPCS: 36415; 80053; 85025

== ENCOUNTER → 2022-04-04 | Outpatient (CLI) | payer OTHER ==
--- NOTE | 2022-04-04 10:13 | US ---
EXAMINATION TYPE: US liver DATE OF EXAM: 04/04/2022 COMPARISON: US CLINICAL HISTORY: K7030 alcohol CIRRHOSIS OF LIVER. Alcoholic cirrhosis TECHNIQUE: Multiple sonographic images of the right upper quadrant are obtained. FINDINGS: EXAM MEASUREMENTS: Liver Length: 13.5 cm CBD: 0.5 cm Right Kidney: 10.4 x 5.6 x [address] [employer] NOTES: Pancreas: wnl, tail obscured by overlying bowel gas Liver: Heterogeneous, lobulated contour Gallbladder: Surgically absent Evidence for sonographic Coronado's sign: No CBD: wnl Right Kidney: wnl IMPRESSION: Hepatic cirrhosis without suspicious observation.
[2022-04-04 16:03] LABS: HCT 44.2 % (37.2-46.3); HGB 14.5 g/dL (12.0-15.0); MCH 33.3 pg (27.0-32.0); MCHC 32.8 g/dL (32.0-37.0); MCV 101.6 fL (80.0-97.0); Mean Platelet Volume 10.9 fL (9.5-12.2); NRBC Per 100 WBC 0 /100 WBCS (0.0-0.0); Platelet Count 169 X 10*3/uL (140-440); RBC 4.35 X 10*6/uL (4.10-5.20); RDW 14.6 % (11.5-14.5); WBC 5.92 X 10*3/uL (4.50-10.00)
[2022-04-04 16:05] LABS: African American GFR (CKD) 103.5 (60.0-200.0); Albumin 4.3 g/dL (3.8-4.9); Albumin/Globulin Ratio 1.45 (1.60-3.17); BUN/Creat Ratio 19.16 Ratio (12.00-20.00); Blood Urea Nitrogen 14.1 mg/dL (9.0-27.0); Calcium 9.9 mg/dL (8.7-10.3); Carbon Dioxide 25.9 mmol/L (20.0-27.5); Non-African American GFR(CKD) 89.3 (60.0-200.0); Potassium 4.4 mmol/L (3.5-5.5); Total Bilirubin 1.5 mg/dL (0.30-1.20); Total Protein 7.3 g/dL (6.2-8.2)
== END | disposition home or self-care (01) ==
LOC: RADUSWWP 08:56
PROVIDERS: ATTEND Internal Medicine Gastroenterology
DX: K70.30 Alcoholic cirrhosis of liver without ascites (principal)
CPT/HCPCS: 76705; 80053; 82105; 85027

== ENCOUNTER → 2022-10-17 | Outpatient (CLI) | payer OTHER ==
[2022-10-17 16:15] LABS: HCT 48.2 % (37.2-46.3); HGB 15.5 g/dL (12.0-15.0); MCH 33.2 pg (27.0-32.0); MCHC 32.2 g/dL (32.0-37.0); MCV 103.2 fL (80.0-97.0); Mean Platelet Volume 12.1 fL (9.5-12.2); NRBC Per 100 WBC 0 /100 WBCS (0.0-0.0); Platelet Count 160 X 10*3/uL (140-440); RBC 4.67 X 10*6/uL (4.10-5.20); RDW 13.2 % (11.5-14.5); WBC 5.25 X 10*3/uL (4.50-10.00)
[2022-10-17 17:11] LABS: African American GFR (CKD) 115.6 (60.0-200.0); Albumin 4.4 g/dL (3.8-4.9); Albumin/Globulin Ratio 1.26 (1.60-3.17); Anion Gap 12.1 mmol/L (10.00-18.00); BUN/Creat Ratio 17.17 Ratio (12.00-20.00); Blood Urea Nitrogen 10.3 mg/dL (9.0-27.0); Calcium 9.9 mg/dL (8.7-10.3); Carbon Dioxide 22.9 mmol/L (20.0-27.5); Globulin 3.5 g/dL (1.6-3.3); Non-African American GFR(CKD) 99.8 (60.0-200.0); Potassium 5.1 mmol/L (3.5-5.5); Total Bilirubin 1.5 mg/dL (0.30-1.20); Total Protein 7.9 g/dL (6.2-8.2)
--- NOTE | 2022-10-18 06:58 | MM ---
Reason for Exam: Screening (asymptomatic). Last mammogram was performed 1 year(s) and 4 month(s) ago. Patient History: Patient has no children. Postmenopausal. Other cancer, age 50. Risk Values: Aracelis 5 year model risk: 1.4%. NCI Lifetime model risk: 7.6%. Prior Study Comparison: 10/18/2018 Screening Mammogram, [facility]. 11/22/2018 Screening Mammogram, [facility]. 06/23/2021 Bilateral Screening Mammogram, [facility]. Tissue Density: The breast tissue is heterogeneously dense. This may lower the sensitivity of mammography. Findings: Analyzed By CAD. There is no suspicious group of microcalcifications or new suspicious mass in either breast. Overall Assessment: Negative, BI-RAD 1 Management: Screening Mammogram of both breasts in 1 year. A clinical breast exam by your physician is recommended on an annual basis and results should be correlated with mammographic findings. Electronically signed and approved by: Fernando Dolan M.D.
== END | disposition home or self-care (01) ==
LOC: RADMAMWWP 07:37
PROVIDERS: ATTEND Family Medicine
DX: Z12.31 Encounter for screening mammogram for malignant neoplasm of breast (principal); Z78.0 Asymptomatic menopausal state
CPT/HCPCS: 77067; 80053; 82105; 85027

== ENCOUNTER → 2022-10-17 | Outpatient (CLI) | payer OTHER ==
--- NOTE | 2022-10-17 08:35 | US ---
EXAMINATION TYPE: US liver DATE OF EXAM: 10/17/2022 COMPARISON: CLINICAL INDICATION: Female, 57 years old with history of K70.30 ALCOHOLIC CIRRHOSIS OF LIVER WITHOUT ASCITE; Routine ultrasound. GB removed. TECHNIQUE: Multiple sonographic images of the right upper quadrant are obtained. FINDINGS: EXAM MEASUREMENTS: Liver Length: 13.5 cm CBD: 0.5 cm Right Kidney: 10.4 x 4.7 x 5.6 cm Pancreas: Head and tail obscured by overlying bowel gas Liver: Echogenic, heterogenous and nodular. Gallbladder: Surgically absent Evidence for sonographic Coronado's sign: neg CBD: wnl, limited visualization Right Kidney: No hydronephrosis or masses seen IMPRESSION: Correlate for underlying cirrhotic liver disease.
== END | disposition home or self-care (01) ==
LOC: RADUSWWP 07:39
PROVIDERS: ATTEND Internal Medicine Gastroenterology
DX: K70.30 Alcoholic cirrhosis of liver without ascites (principal)
CPT/HCPCS: 76705

== ENCOUNTER → 2023-04-24 | Outpatient (CLI) | payer OTHER ==
--- NOTE | 2023-04-24 08:18 | US ---
EXAMINATION TYPE: US liver DATE OF EXAM: 04/24/2023 COMPARISON: US 10/17/2022 CLINICAL INDICATION: Female, 58 years old with history of K70.30 ALCOHOLIC CIRRHOSIS; Alcoholic cirrh osis. Hx cholecystectomy. Patient also had surgery for pyloric stenosis as a baby. TECHNIQUE: Multiple sonographic images of the right upper quadrant are obtained. FINDINGS: EXAM MEASUREMENTS: Liver Length: 14.8 cm Gallbladder Wall: Surgically absent. CBD: Obscured. Right Kidney: 9.4 x 6.0 x 6.4 cm TAX AUDIT MANAGER NOTES: Limited due to great amount of overlying bowel gas*. Pancreas: Not well seen. Liver: Appears very coarse and heterogeneous. Limited. Gallbladder: Surgically absent. CBD: Obscured. Right Kidney: No hydronephrosis or masses seen Pancreas obscured by overlying bowel gas. Limited evaluation of the liver due to overlying bowel gas. Appears very coarse and heterogenous which limits evaluation for focal lesions. Surface nodularity d emonstrated. Common bile duct is obscured by overlying bowel gas. Gallbladder surgically absent. No h ydronephrosis, solid mass, or nephrolithiasis involving the right kidney. IMPRESSION: Limited examination due to overlying bowel gas. 1. Hepatic cirrhosis. Evaluation is very limited for focal hepatic lesion due to ultrasound appearan ce and overlying bowel gas. Correlate with alpha-fetoprotein and consider further evaluation with CT or MR abdomen if there is concern for malignancy 2. Post cholecystomy changes.
[2023-04-24 16:30] LABS: ALT 75 U/L (8-44); AST 128 U/L (13-35); Albumin 4.5 d/dL (3.8-4.9); Albumin/Globulin Ratio 1.41 Ratio (1.60-3.17); Alkaline Phosphatase 184 U/L (41-126); BUN/Creat Ratio 11.67 Ratio (12.00-20.00); Calcium 10.5 mg/dL (8.7-10.3); Carbon Dioxide 24.3 mmol/L (21.6-31.8); Chloride 97 mmol/L (96-109); Globulin 3.2 d/dL (1.6-3.3); Glucose 98 mg/dL (70-110); Potassium 4.4 mmol/L (3.5-5.5); Sodium 138 mmol/L (135-145); Total Bilirubin 1.7 mg/dL (0.3-1.2); Total Protein 7.7 d/dL (6.2-8.2)
[2023-04-24 16:51] LABS: HGB 15.3 d/dL (12.0-15.0); MCH 34.5 pg (27.0-32.0); MCHC 33.3 d/dL (32.0-37.0); MCV 103.6 FL (80.0-97.0); NRBC Per 100 WBC 0 X 10*3/uL (0.00-0.01); Platelet Count 151 X 10*3/uL (140-440); RBC 4.44 X 10*6/uL (4.10-5.20); RDW 12.7 % (11.5-14.5); WBC 6.38 X 10*3/uL (4.50-10.00)
== END | disposition home or self-care (01) ==
LOC: RADUSWWP 07:34
PROVIDERS: ATTEND Internal Medicine Gastroenterology
DX: K70.30 Alcoholic cirrhosis of liver without ascites (principal); Z87.738 Personal history of other specified (corrected) congenital malformations of digestive system; Z90.49 Acquired absence of other specified parts of digestive tract
CPT/HCPCS: 76705; 80053; 82105; 85027

== ENCOUNTER → 2023-05-17 | Outpatient (CLI) | payer OTHER ==
--- NOTE | 2023-05-17 15:17 | P.SLEEP ---
History of Present Illness DATE: 05/17/2023 CONSULTATION/NEW PATIENT EVALUATION HISTORY OF PRESENT ILLNESS/SLEEP-WAKE EVALUATION: 58-year-old lady had been ev aluated in the sleep center for possible obstructive sleep apnea hypopnea syndrome. SLEEP SCHEDULE: Usually sleep schedule from 11 PM to 6:45 AM during weekdays and from 121 AM until 8:30 AM on weekend. FALLING ASLEEP: Sometimes patient has difficulties to fall asleep, has TV set and bedroom. DURING SLEEP: Patient usually sleeps on the back and side position by himself, so no information about snoring. Patient may wake up from sleep several times with up to 2 episodes of nocturia. Positive history of grinding teeth, dry mouth and panic attacks. No history of hypnogogical hallucinations, sleep paralysis, or cataplexy. DURING THE DAY/WAKE STATE: In the morning patient wake up tired. [place] sleepiness scale is 7. Patient may take naps about 5 PM. PAST MEDICAL HISTORY: Asthma, headaches, acid reflux, liver cirrhosis. PAST SURGICAL HISTORY: Surgical treatment of pyloric stenosis after breath, surgical treatment of basal cell carcinoma of the skin. MEDICATIONS: Lactulose once a day, spironolactone 50 mg once a day. SOCIAL HISTORY: Positive history of smoking for about 10 years, quit in 2000, alcohol consumption occasional. FAMILY HISTORY: Hypertension, stroke, dementia, thyroid problems. REVIEW OF SYSTEMS: Multiple awakenings from sleep. No fevers. No double vision. No recent chest pain. No shortness of breath. No abdominal pain. No bleeding episodes. No blood in urine. No seizure episodes. PHYSICAL EXAMINATION: GENERAL: A pleasant patient without any distress. VITAL SIGNS: BP 120/78, HR 100, RR 18, weight 153.2 pounds, height 5 foot 4-3/4 inches, body mass index 25.6. HEENT: PERRLA, EOMI. Evaluation of oropharynx showed tongue protrudes midline, low position of soft palate Mallampati 4. NECK: Supple. No JVD. Thyroid is not palpable. 14-1/4 inches in circumference. LUNGS: Clear to percussion and to auscultation. Good air exchange. No wheezing or rhonchi. HEART: S1, S2 regular. No murmurs, gallops or rubs. ABDOMEN: Soft and nontender. Bowel sounds are present. No organomegaly appreciated. EXTREMITIES: No clubbing or cyanosis. PLUSH WEAVER: Awake, alert, and oriented x3. Cranial nerves 2 to 7 intact. There is no fasciculation or atrophy noted. No focal deficits observed. ASSESSMENT: 1. Multiple awakenings from sleep, extremely low position of soft palate, history of panic attacks. Obstructive sleep apnea hypopnea syndrome. 2. History of asthma. 3. Headaches. 4. Acid reflux. 5 history of liver cirrhosis. 6 . Status post surgical treatment for basal cell carcinoma of the skin. 7. Status post surgical treatment for pyloric stenosis in tapper balance wheel screw hole. PLAN: 1. Polysomnography for evaluation of patient's breathing during sleep. 2. Following plan after reading sleep study 3. Preferable position during sleep on the side. 4. No driving if patient feels any sleepiness. Patient is aware of civil and criminal liability for unsafe driving. 5. Sleep hygiene with regular sleep time for at least 7.5-8 hours. 6. Watching weight. Thank you very much for referring this patient for consultation. Sincerely, Mattoe Harrington MD, PhD, FAASM. Diplomat of [place] [employer], Sleep Medicine Board by [place] [employer] [place] [employer] Util[employer] And Maintenance Supervisor of [facility] Past Medical History Past Medical History: Asthma, GERD/Reflux, Hyperlipidemia Additional Past Medical History / Comment(s): Mild asthma-no medication, diverticular disease, vertigo since January 2020 History of Any Multi-Drug Resistant Organisms: None Reported Past Surgical History: Cholecystectomy Additional Past Surgical History / Comment(s): Surgery for pyloric stenosis as an infant, EGD, colonoscopy Past Anesthesia/Blood Transfusion Reactions: Motion Sickness Additional Past Anesthesia/Blood Transfusion Reaction / Comment(s): Pt has had low blood pressure. Pt has clausterphobia. Smoking Status: Former smoker - Past Family History Mother Family Medical History: Deep Vein Thrombosis (DVT) Additional Family Medical History / Comment(s): Pancreatic pseudocyst/pancreat itis. Father Family Medical History: Liver Disease, Myocardial Infarction ([place]) Additional Family Medical History / Comment(s): Hepatitis, liver shunt. of [place] at age 63 yrs. Medications and Allergies Home Medications Medication Instructions Recorded Confirmed Type Omeprazole 40 mg PO DAILY 06/09/16 04/13/20 History Atorvastatin [Lipitor] 20 mg PO DAILY 04/13/20 04/13/20 History Folic Acid 1 mg PO DAILY@1200 #30 tab 04/17/20 Rx Furosemide [Lasix] 40 mg PO DAILY #30 tab 04/17/20 Rx Lactulose [Cephulac] 20 gm PO TID #900 ml 04/17/20 Rx Multivitamins, Thera [Multivitamin 1 each PO DAILY@1200 #30 tab 04/17/20 Rx (formulary)] Spironolactone [Aldactone] 50 mg PO DAILY #60 tab 04/17/20 Rx Thiamine [Vitamin B-1] 100 mg PO DAILY #30 tablet 04/17/20 Rx diphenhydrAMINE [Benadryl] 25 mg PO TID PRN #12 cap 04/17/20 Rx Allergies Allergy/AdvReac Type Severity Reaction Status Date / Time No Known Allergies Allergy Verified 04/13/20 11:45 Sleep Note - Sleep Note Sleep Note: Temperature: Pulse Rate: Respiratory Rate: Blood Pressure: SpO2: Height: Weight: BMI: Neck Circumference:
== END ==
LOC: 3 N SLEEP 14:08
PROVIDERS: ATTEND Internal Medicine
DX: G47.33 Obstructive sleep apnea (adult) (pediatric) (principal); J45.909 Unspecified asthma, uncomplicated; R51.9 Headache, unspecified; K21.9 Gastro-esophageal reflux disease without esophagitis; K74.69 Other cirrhosis of liver; Z85.828 Personal history of other malignant neoplasm of skin; Z87.19 Personal history of other diseases of the digestive system
CPT/HCPCS: 99211

== ENCOUNTER 2023-05-29 19:35 | Outpatient (CLI) | payer OTHER ==
--- NOTE | 2023-05-31 12:13 | P.PCN ---
Description of Procedure: POLYSOMNOGRAPHY REPORT PROCEDURE(S)/DATE(S): Polysomnography 05/29/2023 CLINICAL: Patient has been seen in the sleep center for evaluation of obstructive sleep apnea-hypopnea syndrome. Please see my consultation. Sleep study has been done for evaluation of patient breathing during the sleep. PROCEDURE: The standard montage for clinical polysomnography included the electroencephalogram, the electrooculogram, the mentalis surface electromyography and Lead II cardiography. The respiratory battery consisted of measurements of nasal/buccal air flow, pressure transducer measurements from nose, thoracic and/or abdominal effort and intercostal surface electromyography. Video monitoring has been done to check for any parasomnia events. Nocturnal oxyhemoglobin saturations were obtained by finger oximetry. Step-pérez titration with positive airway pressure was utilized to control the respiratory events, if necessary. RESULTS: During the diagnostic sleep study sleep efficiency was normal 89.2 %. Latency to sleep onset was normal 21.0 min. Sleep architecture showed stage NI was normal 5.5 %, Delta sleep was normal 19.3 %, REM sleep was borderline 19.0 %. Respiratory channel showed 0 obstructive apneas, 0 mixed apneas, 0 central apneas, 2 hypopneas with lowest oxygen level 88 %. Total apnea hypopnea index was 0.3. Heart rate was in the range between 84 and 95, average 90 by computer calculation. EMG showed 0.7 periodic limb movements per hour. IMPRESSIONS: 1. No significant respiratory abnormalities have been documented during the sleep study. Normal oxygenation during the sleep. 2. No significant periodic limb movements have been documented. 3. Practically normal sleep efficiency and sleep architecture. Please see other impressions from consultation PLAN: 1. Sleep hygiene with regular time in bed for at least 7-1/2 hours. 2. No driving if feeling sleepiness. Thank you very much for allowing me to participate in the management of your patient. Sincerely, Matteo Harrington MD, PhD, FAASM. Diplomat of [place] [employer], Sleep Medicine Board by [place] [employer] Engine Repairer Production of [facility]
== END 2023-05-30 05:50 | disposition home or self-care (01) ==
LOC: 3 N SLEEP 19:35
PROVIDERS: ATTEND Internal Medicine
DX: G47.33 Obstructive sleep apnea (adult) (pediatric) (principal); Z87.891 Personal history of nicotine dependence
CPT/HCPCS: 95810

== ENCOUNTER → 2023-09-29 | Outpatient (CLI) | payer OTHER ==
--- NOTE | 2023-09-29 12:45 | MR ---
EXAMINATION TYPE: MR hip RT wo con DATE OF EXAM: 09/29/2023 COMPARISON: None HISTORY: RT HIP PAIN AND LIMITED MOVEMENT SINCE JUN 24 Standard multiplanar, multisequence MRI departmental protocol Multiplanar, multisequence images of the right hip were acquired without contrast. Diffusion weighted imaging was performed. FINDINGS: There is diffuse marrow edema throughout the right femoral head, neck and proximal diaphysis of the f emur. There is abnormal signal in the involving the femoral head compatible with osteonecrosis. Marro w alteration likely represents reactive severe marrow edema. Microtrabecular fracture not excluded. S mall amount of joint fluid. Abnormal signal involving the left femoral head also compatible with osteonecrosis. Remaining osseous structures demonstrate a normal signal pattern. There is hypertrophic arthropathy o f the SI joints. Within the pelvis there is no sizable free fluid. No acute abnormality noted. IMPRESSION: 1. Severe marrow edema involving the proximal right femur with findings compatible with osteonecrosis of the right femoral head. Favor the marrow edema is reactive. 2. Osteonecrosis of the left femoral head. A [place] level critical message alert has been initiated for Sherley Christensen DO via the [employer] Critical Results System on 09/29/2023 12:40 PM. This message alert has been sent to [facility] via the preferences provided by the clinician for the receipt of Radiology Critical Findings . Message ID [id number].
== END | disposition home or self-care (01) ==
LOC: RADMRIMAIN 11:05
PROVIDERS: ATTEND Family Medicine
DX: M25.351 Other instability, right hip (principal); M25.551 Pain in right hip; M85.80 Other specified disorders of bone density and structure, unspecified site; M87.852 Other osteonecrosis, left femur; R60.0 Localized edema

== ENCOUNTER → 2023-10-09 | Outpatient (CLI) | payer OTHER | END | disposition home or self-care (01) | LOC: LABPAT 09:34 | PROVIDERS: ATTEND Orthopaedic Surgery | DX: Z01.812 Encounter for preprocedural laboratory examination (principal); M87.051 Idiopathic aseptic necrosis of right femur; Z22.322 Carrier or suspected carrier of Methicillin resistant Staphylococcus aureus | CPT/HCPCS: 86850; 86900; 86901; 87070 ==

== ENCOUNTER → 2023-10-09 | Outpatient (CLI) | payer OTHER ==
[2023-10-09 10:46] LABS: Basophils # (A) 0.1 k/uL (0-0.2); Basophils % (A) 1 %; Eosinophils # (A) 0.2 k/uL (0-0.7); Eosinophils % (A) 5 %; HCT 51.2 % (34.0-46.0); HGB 16.4 gm/dL (11.4-16.0); Lymphocytes # (A) 1.7 k/uL (1.0-4.8); Lymphocytes % (A) 33 %; MCH 33.9 pg (25.0-35.0); MCV 105.8 fL (80.0-100.0); Macrocytosis Moderate; Mean Platelet Volume 8.9; Monocytes # (A) 0.4 k/uL (0-1.0); Monocytes % (A) 8 %; Neutrophils # (A) 2.5 k/uL (1.3-7.7); Neutrophils % (A) 50 %; Platelet Count 150 k/uL (150-450); RBC 4.84 m/uL (3.80-5.40); RDW 13.2 % (11.5-15.5)
[2023-10-09 16:20] LABS: Appearance,Urine Turbid (Clear); Bilirubin,Urine Small (Negative); Blood,Urine Negative (Negative); Color,Urine Dark Yellow (Yellow); Ketones,Urine Trace (Negative); Nitrite,Urine Negative (Negative); PH, Urine 5.5; Specific Gravity,Urine 1.024 (1.001-1.030)
[2023-10-09 16:43] LABS: ALT 43 U/L (8-44); AST 50 U/L (13-35); Albumin 4.3 g/dL (3.8-4.9); Albumin/Globulin Ratio 1.43 Ratio (1.60-3.17); Alkaline Phosphatase 102 U/L (41-126); Blood Urea Nitrogen 10.8 mg/dL (9.0-27.0); Calcium 10.4 mg/dL (8.7-10.3); Carbon Dioxide 22.1 mmol/L (21.6-31.8); Chloride 104 mmol/L (96-109); Chol/HDL Ratio 2.03 Ratio; Glucose 90 mg/dL (70-110); LDL Cholesterol,Calculated 98.7 mg/dL (0.0-131.0); Potassium 3.6 mmol/L (3.5-5.5); Sodium 140 mmol/L (135-145); Total Bilirubin 1.4 mg/dL (0.3-1.2); Total Protein 7.3 g/dL (6.2-8.2); Uric Acid 4.4 mg/dL (2.9-7.7); VLDL Calculation 16.28 mg/dL (5.00-40.00)
[2023-10-09 16:45] LABS: INR 1.11 sec (0.93-1.11); Prothrombin Time 11.9 sec (9.9-11.9)
[2023-10-09 16:50] LABS: Bacteria,Urine None Seen (None Seen); Calcium Oxalate Crystals,Urine Present (None Seen)
== END | disposition home or self-care (01) ==
LOC: LABWHC1 09:39
PROVIDERS: ATTEND Family Medicine
DX: D51.9 Vitamin B12 deficiency anemia, unspecified (principal); E55.9 Vitamin D deficiency, unspecified; K70.30 Alcoholic cirrhosis of liver without ascites; M25.551 Pain in right hip; R30.0 Dysuria
CPT/HCPCS: 36415; 80053; 80061; 81001; 82105; 82306; 82607; 84443; 84550; 85025; 85610; 87086

== ENCOUNTER → 2023-10-09 | Outpatient (CLI) | payer OTHER ==
--- NOTE | 2023-10-09 10:45 | XR ---
EXAMINATION TYPE: XR chest 2V DATE OF EXAM: 10/09/2023 COMPARISON: NONE TECHNIQUE: PA and lateral views submitted. HISTORY: Presurgical FINDINGS: The lungs are clear and there is no pneumothorax, pleural effusion, or focal pneumonia. Heart size normal and no overt failure. Osseous structures demonstrate hypertrophic and degenerative changes of the spine. Curvature of the spine noted. IMPRESSION: 1. No acute process.
== END | disposition home or self-care (01) ==
LOC: RADXRMAIN 10:13
PROVIDERS: ATTEND Family Medicine
DX: Z01.818 Encounter for other preprocedural examination (principal)
CPT/HCPCS: 71046

== ENCOUNTER → 2023-10-10 | Outpatient (CLI) | payer OTHER ==
--- NOTE | 2023-10-10 19:07 | US ---
EXAMINATION TYPE: US liver DATE OF EXAM: 10/10/2023 COMPARISON: 04/24/2024 CLINICAL INDICATION: Female, 58 years old with history of K70.30 ALCOHOLIC CIRRHOSIS OF LIVER WITHOUT ASCITE; Patient denies any signs or symptoms at this time, HX cholecystectomy and pyloric stenosis TECHNIQUE: Multiple sonographic images of the right upper quadrant are obtained. FINDINGS: EXAM MEASUREMENTS: Liver Length: 13.5 cm Gallbladder Wall: Surgically absent cm CBD: 0.8 cm Right Kidney: 9.9 x 6.7 x 4.9 cm RN LIAISON NOTES: Pancreas: wnl Liver: Nodular contour with out evidence for mass, cystic structure or dilated duct. Gallbladder: Surgically absent Evidence for sonographic Coronado's sign: No CBD: wnl Right Kidney: wnl IMPRESSION: 1. No evidence for acute process. 2. Hepatic cirrhosis without evidence for suspicious mass.
== END | disposition home or self-care (01) ==
LOC: RADUSWWP 09:18
PROVIDERS: ATTEND Internal Medicine Gastroenterology
DX: K70.30 Alcoholic cirrhosis of liver without ascites (principal); K31.1 Adult hypertrophic pyloric stenosis; Z90.49 Acquired absence of other specified parts of digestive tract
CPT/HCPCS: 76705

== ENCOUNTER 2023-10-17 10:58 | Observation (INO) | payer OTHER ==
[2023-10-12 10:10] VITALS: BMI 23.2
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
[~2023-10-17 10:58] MED LIST changes: +ACETAMINOPHEN TAB 500 MG TAB PO PRN; +HYDROmorphone 0.5 MG/0.5 ML SYRINGE IVP PRN; -LACTATED RINGERS 1,000 ML IV SCH; +LIDOCAINE 1% (10MG/ML) FOR IV START INTRADERMA PRN; +MIDAZOLAM 2 MG/2 ML VIAL IV PRN; +TRANEXAMIC 1,000 MG/100ML-NACL 1,000 MG in SALINE 1 100ML.BAG IVPB PRN
[2023-10-17] MEDS: LACTATED RINGERS 1,000 ML IV SCH (11:29)
[2023-10-17] MEDS: MELOXICAM 7.5 MG TAB PO PRN (11:39)
[2023-10-17] MEDS: ONDANSETRON 4 MG/2 ML VIAL IVP ONE (11:40)
[2023-10-17] MEDS: DEXAMETHASONE SOD PHOSPHATE 4 MG/ML 1 ML VIAL IV ONE (11:40)
[2023-10-17] MEDS: MIDAZOLAM 2 MG/2 ML VIAL IVP ONE (12:04)
--- NOTE | 2023-10-17 12:07 | P.ANPRN ---
Procedure Note - Anesthesia - Nerve Block Performed Right Sivakumar Single Time Out Performed: Yes Date of Procedure: 10/17/23 Procedure Start Time: 11:55 Procedure Stop Time: 11:59 Location of Patient: PreOp Indication: Acute Post-Operative Pain, Analgesia, Requested by Surgeon Sedation Type: Sedate with meaningful contact maintained Preparation: Sterile Prep Position: Supine Catheter: None Needle Types: Pajunk Needle Gauge: 21 Ultrasound used to visualize needle placement: Yes Ultrasound used to observe medication spread: Yes Injectate: 0.5% Ropivacaine (see comment for volume) (Ropiv 25ml + decadron 4mg) Blood Aspirated: No Pain Paresthesia on Injection Noted: No Resistance on Injection: Normal Image Stored and Saved: Yes Events: Uneventful and Well Tolerated
[2023-10-17] MEDS ORDERED: PROPOFOL 10 MG/ML 20 ML VIAL IV ONE (13:57)
[2023-10-17] MEDS ORDERED: TRANEXAMIC 1,000 MG/100ML-NACL PREMIX BAG ONE (13:57)
[2023-10-17] MEDS ORDERED: fentaNYL (PF) 50 MCG/ML 2 ML AMP ONE (13:57)
[2023-10-17] MEDS ORDERED: MIDAZOLAM 2 MG/2 ML VIAL ONE (13:57)
[2023-10-17] MEDS ORDERED: DEXAMETHASONE SOD PHOSPHATE 4 MG/ML 1 ML VIAL ONE (13:57)
[2023-10-17] MEDS ORDERED: LIDOCAINE 1% INJ 10MG/ML (20 ML MDV) ONE (13:57)
[2023-10-17] MEDS ORDERED: ROPIVACAINE 5 MG/ML 30 ML VIAL ONE (13:57)
[2023-10-17] MEDS: ceFAZolin 1,000 MG in SODIUM CHLORIDE 0.9% 1,000 ML IRRIGATION ONE (14:38)
[2023-10-17] MEDS: LACTATED RINGERS 1,000 ML IV ONE (15:24)
[2023-10-17] MEDS ORDERED: HYDROcodone/APAP 5-325MG 1 EACH TAB PO PRN (15:45)
[2023-10-17] MEDS ORDERED: NALOXONE 0.4 MG/ML 1 ML VIAL IV PRN (15:45)
[2023-10-17] MEDS ORDERED: MAGNESIUM HYDROXIDE 2,400 MG/30 ML CUP PO PRN (15:45)
[2023-10-17] MEDS ORDERED: HYDROmorphone 1 MG/ML 1 ML SYRINGE IVP PRN (15:45)
[2023-10-17] MEDS ORDERED: HYDROcodone/APAP 7.5-325MG 1 EACH TAB PO PRN (15:45)
--- NOTE | 2023-10-17 16:34 | P.OP ---
Date of Procedure: 10/17/23 Preoperative Diagnosis: Right hip stage IV avascular necrosis Postoperative Diagnosis: Same Procedure(s) Performed: Right total hip arthroplastypress-fitanterior approach Implants: Depuy Corail Size [id number] standard collared press-fit femoral stem, 36+1.5 mm ceramic femoral head, 54 mm [place] acetabular shell with neutral polyethylene liner. I utilized a 6.5 mm x 30 mm cancellous screw. Anesthesia: regional, spinal Surgeon: Eric Nolasco Granite Polisher Machine #1: Scot Louis Estimated Blood Loss (ml): 100 Pathology: none sent Condition: stable Disposition: PACU Indications for Procedure: The patient 58-year-old female who presents with progressive right hip pain secondary to avascular necrosis. Significant head collapse was noted. A discussion of the risks and benefits of operative intervention was made with patient. She opted to proceed with surgery. Operative risks to include infection, neurovascular injury, development of blood clots, fracture, leg length discrepancy, possible instability, possible need for subsequent procedures was discussed. Informed consent was obtained. Operative Findings: As below Description of Procedure: The patient was brought to the operating room, and after induction of spinal anesthesia was placed supine on the Racheal table. Positioning was checked with fluoroscopy. The [] hip was then prepped and draped in a normal fashion. A 12 cm incision was then made starting 2 fingerbreadths distal and 3 finger breaths posterior to the ASIS in line with the proximal femur. The skin was incised sharply. Subcutaneous tissues were divided sharply. Electrocautery was used for hemostasis. The fascia was split in line with skin incision. The interval between the sartorius and tensor fascia j[place] was then bluntly developed. The posterior fascia was opened with electrocautery. The lateral circumflex vessels were identified and cauterized prior to sectioning. A retractor was placed along the superior femoral neck as well as the anterior acetabular rim. A wide capsulotomy was performed. The neck cut was then made at a 45 angle to the shaft approximately 1 1/2 cm above the level of the lesser trochanter. The head was extracted. Attention was then paid towards preparing the acetabular. Anterior and posterior retractors were placed. The remaining capsular labral tissue sharply debrided clearly defining the acetabular margins. I began reaming with a 45mm reamer taking care to initially medialize then reaming at 45 of abduction and 20 of anteversion. Sequential reaming is performed up to 53 mm. A trial 54mm acetabular shell was inserted in the same orientation and was fully seated. There was good rim fit and stability. Positioning was checked with fluoroscopy. The final 54 mm acetabular shell was inserted again at 45 of abduction and 20 of anteversion. This was fully seated. A posterior superior 6.5 mm x 30 mm cancellus screw was then inserted with good purchase.. Again fluoroscopy was used to check the adequacy of placement. A neutral polyethylene liner was gently impacted. Care was taken to avoid any soft tissue interposition. Pulsatile lavage was utilized. Attention was then paid towards preparing the proximal femur. The saddle region was cleared of soft tissue. A canal finder was used to find the femoral canal. Sequential broaching was performed up to size 11 taking care to lateralize proximally. A calcar mill was used to fashion the medial calcar. There was good rotational stability. A 125 standard neck along with a 36 mm +1.5 head was placed. The hip was gently reduced. Fluoroscopy was used to check the adequacy of positioning along with leg lengths. I felt both were good. The hip was gently dislocated. The trial components were removed. The final size 11 -125 standard collared standard press-fit femoral stem was inserted parallel to the posterior cortex. This was fully seated and there was good rotational stability. A 36mm +1.5 ceramic femoral head was placed. This was gently impacted. The hip was then gently reduced. Final fluoroscopic view showed adequate placement implant along with adventist of leg length. Stability was checked with 80 of external rotation and 60 of extension of the right hip. The wound was irrigated with sterile lavage. The fascia was closed with running 0 Vicryl suture. There was minimal drainage therefore a deep drain was not placed. The second dose of IV TXA was given. The subcutaneous tissues were reapproximated interrupted 2-0 Vicryl sutures. The skin was reapproximated with 3-0 subcuticular strata fix suture. Skin tape and adhesive was applied. A sterile dressing was applied. The patient was then awoken from sedation and transferred to recovery room in good condition. Blood loss was estimated at 200 mL. No complications were incurred. Sponge and needle counts were correct at the end of the case. Scot RODRIGUEZ assisted during the major components is case to include exposure, bone resection, implantation, and closure.
--- NOTE | 2023-10-17 17:10 | XR ---
Fluoroscopy INDICATION: Pain FINDINGS: Fluoroscopy time: 28.4 seconds. Total dose area product (DAP) in uGy*m?, mGy*cm? (or similar): 1.0316 Images obtained: 9. IMPRESSION: 1. Documentation of fluoroscopy.
--- NOTE | 2023-10-17 17:11 | XR ---
EXAMINATION TYPE: XR Hip Limited RT DATE OF EXAM: 10/17/2023 COMPARISON: None HISTORY: Post right hip replacement TECHNIQUE: AP right hip FINDINGS: Right femoral prosthesis has been placed with an acetabular component. No acute fractures i dentified. There may be some subtle osseous changes along the mid ischio ramus on the right. A second ring fract ure however is not identified. Correlate for pain. IMPRESSION: 1. No acute fracture post right hip replacement within the right femur or acetabulum. 2. Some cortical change versus artifact from bowel gas right mid tissue ramus may be present. Correla te for pain
[2023-10-17] MEDS ORDERED: NON FORMULARY DRUG (Cholecalciferol (Vitamin D3) [Vitamin D3 (1250 Mcg = 50,000 Iu)] 1,250 PO SCH (18:45)
[2023-10-17] MEDS: HYDROmorphone 0.5 MG/0.5 ML SYRINGE IVP PRN (20:10)
[2023-10-17] MEDS: SENNOSIDES-DOCUSATE SODIUM 1 EACH TAB PO SCH (21:17)
[2023-10-17] MEDS: LACTULOSE 20 GM/30 ML CUP PO SCH (21:17)
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
[2023-10-17] MEDS: traMADol 50 MG TAB PO PRN (23:34)
--- NOTE | 2023-10-18 08:23 | FL ---
EXAMINATION TYPE: FL guidance operating room Intraoperative/procedural fluoroscopic services were pro vided. Please see the operative/procedural note for further details. RT HIP ANTERIOR ARTHROPLASTY. FL TIME 28.4 SECONDS. DAP 1.0316. [address] DALAL
[2023-10-18 08:54] LABS: Basophils # (A) 0.01 X 10*3/uL (0.00-0.10); Basophils % (A) 0.1 %; Eosinophils # (A) 0 X 10*3/uL (0.04-0.35); Eosinophils % (A) 0 %; HCT 35.2 % (37.2-46.3); HGB 12.2 g/dL (12.0-15.0); Lymphocytes # (A) 1.14 X 10*3/uL (0.90-5.00); Lymphocytes % (A) 12.4 %; MCH 33.6 pg (27.0-32.0); MCHC 34.7 g/dL (32.0-37.0); Mean Platelet Volume 11.8 FL (9.5-12.2); Monocytes # (A) 1.01 X 10*3/uL (0.20-1.00); NRBC Per 100 WBC 0 X 10*3/uL (0.00-0.01); Neutrophils # (A) 7.02 X 10*3/uL (1.80-7.70); Neutrophils % (A) 76.1 %; Platelet Count 142 X 10*3/uL (140-440); RBC 3.63 X 10*6/uL (4.10-5.20); RDW 12.3 % (11.5-14.5); WBC 9.22 X 10*3/uL (4.50-10.00)
[2023-10-18] MEDS ORDERED: OYSTER SHELL CALCIUM 500 MG PO SCH (09:00)
[2023-10-18] MEDS: SPIRONOLACTONE 25 MG TAB PO SCH (09:11)
[2023-10-18] MEDS: FOLIC ACID 1 MG TAB PO SCH (09:11)
[2023-10-18] MEDS: MULTIVITAMINS, THERA 1 EACH TAB PO SCH (09:12)
[2023-10-18] MEDS: THIAMINE 100 MG TAB PO SCH (09:12)
[2023-10-18] MEDS: RIVAROXABAN 10 MG TAB PO SCH (09:12)
[2023-10-18 11:33] LABS: ALT 54 U/L (8-44); AST 74 U/L (13-35); Albumin 3.4 g/dL (3.8-4.9); Albumin/Globulin Ratio 1.48 Ratio (1.60-3.17); Alkaline Phosphatase 85 U/L (41-126); Blood Urea Nitrogen 14.5 mg/dL (9.0-27.0); Calcium 9.4 mg/dL (8.7-10.3); Carbon Dioxide 22.7 mmol/L (21.6-31.8); Chloride 103 mmol/L (96-109); Globulin 2.3 g/dL (1.6-3.3); Glucose 145 mg/dL (70-110); Potassium 3.9 mmol/L (3.5-5.5); Sodium 135 mmol/L (135-145); Total Protein 5.7 g/dL (6.2-8.2)
--- NOTE | 2023-10-18 12:17 | P.PN ---
Subjective Progress Note Date: 10/18/23 Principal diagnosis: avascular necrosis right hip patient seen at bedside this morning sitting up in chair with legs elevated and dressing present over the right hip. Patient says she did work with therapy this morning and walk around the room in the hallway but was unable to do stairs. Patient hoping to stay one more night for additional pain control and therapy. Patient says she does have a walker for home. Patient says she has urinated several times surgery yesterday without issue. Patient says she did get somewhat nauseous when she got up with therapy. However, patient says when she takes pain medication she doesn't up with some nausea. Patient denies chest pain, fever, shortness breath, vomiting, loss of bowel/bladder control. Objective - Vital Signs Vital signs: Vital Signs Temp 98.3 F 10/18/23 07:05 Pulse 78 10/18/23 08:16 Resp 18 10/18/23 08:16 BP 101/62 10/18/23 07:05 Pulse Ox 93 L 10/18/23 07:05 FiO2 Intake & Output 10/17/23 10/18/23 10/18/23 18:59 06:59 18:59 Intake Total 1351 540 Output Total 200 Balance 1151 540 Weight 65.2 kg Intake: IV 1351 Oral 540 Output: Estimated Blood Loss 200 Other: Voiding Method Toilet Toilet # Voids 2 - Exam right hip: Incision is clean, dry, and intact. The exofin fusion tape is in good condition. There is minimal soft tissue swelling and ecchymosis surrounding the medial and lateral aspects of the incision. Calf is soft, no tenderness with palpation. Plantar flexion, dorsiflexion, EHL, FHL are intact. Sensory exam to light touch throughout the extremity is intact, dorsal pedis pulses 2+. - Labs CBC & Chem 7: 10/18/23 06:21 10/18/23 06:21 Labs: Abnormal Lab Results - Last 24 Hours (Table) 10/18/23 10/18/23 Range/Units 06:21 06:21 RBC 3.63 L (4.10-5.20) X 10*6/uL Hct 35.2 L (37.2-46.3) % MCH 33.6 H (27.0-32.0) pg Monocytes # 1.01 H (0.20-1.00) X 10*3/uL Eosinophils # 0 L (0.04-0.35) X 10*3/uL Creatinine 0.5 L (0.6-1.5) mg/dL BUN/Creatinine Ratio 29.00 H (12.00-20.00) Ratio Glucose 145 H (70-110) mg/dL AST 74 H (13-35) U/L ALT 54 H (8-44) U/L Total Protein 5.7 L (6.2-8.2) g/dL Albumin 3.4 L (3.8-4.9) g/dL Albumin/Globulin Ratio 1.48 L (1.60-3.17) Ratio Assessment and Plan Assessment: 1. right hip avascular necrosis - Postop day 1 status post direct anterior right total hip arthroplasty Plan: 1. right hip avascular necrosis - direct anterior right total hip arthroplasty performed yesterday, 10/17/2023. Patient stable at bedside this morning with a dressing present right anterior hip. Patient was unable to perform stairs with therapy this morning. Plan for additional therapy today and tomorrow as well as continued pain management. Plan for discharge home tomorrow with health services. 2. Appreciate medical management 3. Pain management - tramadol 4. GI prophylaxis - senna 5. DVT prophylaxis - [facility]. plan to go home with 2.5 mg twice a day 2 weeks 6. PT/OT - weightbearing as tolerated with walker 7. Encourage incentive spirometer use 8. Discharge planning - plan for discharge home tomorrow with health services. Time with Patient: Less than 30
--- NOTE | 2023-10-19 05:43 | P.PN ---
Subjective Progress Note Date: 10/18/23 HISTORY OF PRESENT ILLNESS: 58-year-old female who become want for patient to the practice recently started seeing Dr. Arndt with past medical history of chronic liver disease, asthma, history of skin cancer, migraine, history of diverticulosis, who also had history of pyloric stenosis postsurgery in the past and known to have history of low blood pressure with remote smoking in the past who used to be a heavy alcoholic 3-4 vodka daily for few years, patient has not smoked or drink for long time. Also patient seen gastroenterology regular basis has been watch for abnormal liver function test and with colic and alcoholic cirrhosis of the liver for the last few years. She developed to have much worsening pain and discomfort in the right hip with failure of conservative management had seen Dr. Peter for over 4 months with trial for conservative management not successful. She was diagnosed with avascular necrosis of the hip she was scheduled for elective right total hip arthroplasty which was done today successfully with no major complication the patient was admitted to the floor afterward. 10/18/2023: Patient is feeling much better she started physical therapy, still having quite a bit of pain in the side, patient was tried on hydromorphone tolerated well also was worried about trying Tramadol because of an episode of hypotension 12 hours after taking it 2 weeks ago which explained to the patient that is less likely to be side effect more likely to be hypoglycemia at the time. Patient seen orthopedic with postop doing well continue pain management, continue physical therapy, and continue anticoagulation with potential Xarelto 2.5 mg twice a day for total of 2 weeks along with PT OT when she goes home. REVIEW OF SYSTEMS: CONSTITUTIONAL: Well-developed no acute respiratory distress. EYES: No icterus sclerae, no conjunctivitis. EARS, NOSE, MOUTH, THROAT, and FACE: No sore throat, lymphadenopathy, carotid bruits or deformity. RESPIRATORY: No SOB cough or wheezes. CARDIOVASCULAR: No CP, Palpitation, PND, Orthopnea, or angina. GASTROINTESTINAL: Chronic liver disease, no abdominal pain nausea vomiting diarrhea or constipation. GENITOURINARY: Negative for Hematuria or UTI, no kidney stones. INTEGUMENT/BREAST: Negative for any muscular injury with mild osteoarthritis.. HEMATOLOGIC/LYMPHATIC: Negative for bleed or purpura. No anemia. MUSCULOSKELTAL: Generalized arthralgia and myalgia. NEURLOGICAL: No LOC, Sz or syncope, blurred vision dizziness or abnormality.. BEHAVIORAL/PSYCH: Negative. ENDOCRINE: Negative. PHYSICAL EXAMINATION: General Appearance: Alert, cooperative, no distress, appears stated age. Neck HEENT: Supple, no lymphadenopathy, no thyroid enlargement, no carotid bruits. Lungs: Clear to auscultation without crackles or wheezes no rhonchi, no deformity. Chest Wall: Decreased expansion with deep inspiration no tenderness and no deformity was found on exam, no costochondral pain or discomfort. Heart: Regular rate and rhythm, S1, S2 normal, no murmur, rub or gallop. Back: Symmetric, no curvature, ROM normal, no CVA tenderness. Abdomen: Soft, non-tender, bowel sounds active all four quadrants, no masses and slight hepatomegaly. Extremities: Extremities normal, atraumatic, no cyanosis or edema. Incision on the right hip With no hematoma or hemorrhage. Pulses: 2+ and symmetric. Skin: Skin color, texture, tugor normal, no rashes or lesions. Neurologic: Alert oriented x3 cranial nerves II through XII intact, no motor deficit, no abnormal balance or gait. ASSESSMENT AND PLAN: _Post right total hip arthroplasty with anterior approach: Stable, resume home meds, patient to be watched hemodynamically carefully, continue pain management, GI DVT and pulmonary prophylaxis will be done. _Avascular necrosis of the hip: Post total hip arthroplasty to avoid injury, steroid, and significant hypoperfusion can avoid having the other side with the same complaint, keep in mind with patient current liver history this is sadly its potential problem can occur to the left hip as well. _Chronic liver disease: With significant abnormal liver function test, has been seen gastroenterology no biopsy was done still will see regularly for alcoholic cirrhosis. Repeat liver function test with total bilirubin of 4.0 AST of 74 ALT of 54 only doing better. _Hypertension: Remain on spironolactone 50 mg daily. Current blood pressures running slightly below at the time but mostly patient is on spironolactone not for hypertension but mostly for her liver problem which at this point probably can reduce the dose down to 25 mg a day. _Mild polycythemia with hemoglobin 16.4 hematocrit 51.2 most likely from her previous history of smoking along with her cirrhosis of the liver. Repeat CBC shows hemoglobin down to 12.2. _Abnormal liver function test with bilirubin of 4.4 ALT and AST and 50s and 60. Still on conservative management seen gastroenterology. _Hyperlipidemia, with cholesterol we will try with 30 patient is not on any statin currently because of side effect or complication on the liver at this poi nt. _Pain management: Patient cannot be on hydromorphone at this point and will start on tramadol she claims she had mild episode of hypotension/hypoglycemia previously and for what she describes sounds like patient has not had any thing to eat for over 12 hours and cause an episode of mild hypoglycemia and hypotension more than 14 hours after taking tramadol which should not became as a side effect tramadol can be safer alternative for oral pain management medication. _GI prophylaxis: Patient be on Pepcid or pantoprazole. _DVT prophylaxis: Patient will remain on Xarelto 2.5 mg twice a day to complete total of 2 weeks. Discharge planning: Apparently patient will be kept in the hospital for another day will be discharged home tomorrow. Objective - Vital Signs Vital signs: Vital Signs Temp 98.5 F 10/18/23 01:25 Pulse 75 10/18/23 01:25 Resp 14 10/18/23 01:25 BP 92/51 10/18/23 01:25 Pulse Ox 95 10/18/23 01:25 FiO2 Intake & Output 10/17/23 10/17/23 10/18/23 06:59 18:59 06:59 Intake Total 1351 540 Output Total 200 Balance 1151 540 Weight 65.2 kg Intake: IV 1351 Oral 540 Output: Estimated Blood Loss 200 Other: Voiding Method Toilet - Labs CBC & Chem 7: 10/18/23 06:21 10/18/23 06:21
[2023-10-19] MEDS: ONDANSETRON 4 MG/2 ML VIAL IVP PRN (09:45)
--- NOTE | 2023-10-19 12:34 | P.PN ---
Subjective Progress Note Date: 10/19/23 Principal diagnosis: Status post direct anterior right total hip arthroplasty Patient was examined today at bedside, she is resting in her hospital bed. Patient was seen on 2 separate occasions once before therapy and once after. Patient did a lot better physical therapy today. She did have some nausea when up and ambulating. She states the pain is a little bit better today. She has been urinating with no issues. She denies any headaches, lightheadedness, chest pain or shortness of breath. Objective - Vital Signs Vital signs: Vital Signs Temp 99.0 F 10/19/23 07:21 Pulse 90 10/19/23 08:22 Resp 17 10/19/23 07:21 BP 101/63 10/19/23 08:22 Pulse Ox 91 L 10/19/23 07:21 FiO2 Intake & Output 10/18/23 10/19/23 10/19/23 18:59 06:59 18:59 Other: Voiding Method Toilet # Voids 1 4 1 - Exam Right lower extremity: Incision is clean, dry, and intact. The exofin fusion tape is in good condition. There is minimal soft tissue swelling and ecchymosis surrounding the medial and lateral aspects of the incision. Calf is soft, no tenderness with palpation. Plantar flexion, dorsiflexion, EHL, FHL are intact. Sensory exam to light touch throughout the extremity is intact, dorsal pedis pulses 2+. - Labs CBC & Chem 7: 10/18/23 06:21 10/18/23 06:21 Assessment and Plan Assessment: Postoperative day #2 status post direct anterior right total hip arthroplasty Plan: Pain control, plan for discharge home on tramadol 50 mg DVT prophylaxis, Eliquis 2.5 mg twice daily for 30 days Home health care, this to include nursing and therapy after discharge Weight-bear as tolerated, discussed use of walker Wound care instructions were discussed, this to include showering instructions Medical recommendations appreciated Discharge planning: Patient stable for discharge home today Time with Patient: Less than 30
--- NOTE | 2023-10-19 12:38 | P.DS ---
Providers Date of admission: 10/17/23 10:59 Expected date of discharge: 10/19/23 Attending physician: Eric Nolasco Consults: 10/17/23 15:45 Consult Physician Routine Consulting Provider: Jose Eduardo Miranda Reason/Comments: medical management Do you want consulting provider notified?: Yes Primary care physician: Chuyita Yris [facility] Course: Date of admission: 10/17/2023 Date of discharge: 10/19/2023 Admission diagnosis: Status post direct anterior right total hip arthroplasty Discharge diagnosis: Same Attending physician: Dr. Nolasco Surgical procedures: Direct anterior right total hip arthroplasty Brief history: Patient is a 58-year-old female with a history of right hip avascular necrosis. At this point patient has failed conservative treatment measures and has opted to proceed with a elective direct anterior right total hip arthroplasty. Hospital course: Details of patient's surgery can be found in operative report. Patient tolerated the procedure well and was subsequently transported to orthopedic floor. Patient's orthopeidc and medical care was provided daily. Patient had daily laboratory tests performed for evaluation of overall blood counts. Patient had daily physical therapy to include strengthening range of motion as well as education with walker ambulation. Patient was treated with Xarelto for their postoperative DVT prophylaxis during their inpatient stay. Patient was noted to have a relatively uneventful postoperative course. Patient reported satisfactory pain control with oral pain medications by postoperative day 1. Patient showed satisfactory progress with physical therapy. Patient moved steadily through the program and had no difficulty meeting the goals by postoperative day 2. Given patient's otherwise satisfactory course and having met physical therapy goals, plan is to discharge patient home on postoperative day 2. Discharge condition/disposition: Patient will be discharged home in stable condition. Discharge medications: Instructions are given on resumption of patient's normal daily medications per primary care recommendation, in addition patient will be prescribed tramadol 50 mg, senna S, Eliquis 2.5 mg, Zofran 8 mg. Discharge instructions: 1. Wound care and infection precautions, keep incision dry and covered while showering, no lotions, creams, moisturizers. No soaking, tubs, pools, hottubs. Do not scrub over the incision. 2. Weight-bear as tolerated with walker / cane until follow-up. 3. Ice and elevate when necessary. Do not exceed 20 minutes per hour with ice pack. 4. Utilize compression sleeve until seen at first follow up appointment. 5. Visiting nursing care. 6. Home physical therapy. 7. Pain meds and anticoagulants per prescription. 8. Pain medication has potential to cause constipation. Increase oral fluid and fiber intake. Contact primary care provider if you have not had a bowel movement within 48 hours after discharge 9. No anti-inflammatory medication until discussed at first post operative visit, this including Motrin, Aleve, Mobic, Diclofenac 10. Follow up in office at 2 weeks postop with Jimmy Lockett PA-C/Scot Cook 11. Follow up with your primary care doctor 7-10 days after discharge. 12. Contact [facility] with any questions, . Procedures: Direct anterior right total hip arthroplasty Patient Condition at Discharge: Good Plan - Discharge Summary Discharge Rx Participant: Yes New Discharge Prescriptions: New Apixaban [Eliquis] 2.5 mg PO BID #60 tab traMADol HCl [Ultram] 50 mg PO Q6H PRN #28 tab PRN Reason: Pain Sennosides/Docusate Sodium [Senna-S 8.6-50 mg Tablet] 2 each PO DAILY PRN #30 tablet PRN Reason: Constipation ondansetron HCL [Zofran] 8 mg PO Q12HR PRN #30 tab PRN Reason: Nausea No Action Spironolactone [Aldactone] 50 mg PO DAILY #60 tab Lactulose [Cephulac] 20 gm PO TID #900 ml Thiamine [Vitamin B-1] 100 mg PO DAILY #30 tablet Oyster Shell Calcium 500 mg PO DAILY Multivitamins, Thera [Multivitamin (formulary)] 1 each PO DAILY Folic Acid 1 mg PO DAILY Cholecalciferol (Vitamin D3) [Vitamin D3 (1250 Mcg = 50,000 Iu)] 1,250 mcg PO Q7D Discharge Medication List Lactulose [Cephulac] 20 gm PO TID #900 ml 04/17/20 [Rx] Spironolactone [Aldactone] 50 mg PO DAILY #60 tab 04/17/20 [Rx] Thiamine [Vitamin B-1] 100 mg PO DAILY #30 tablet 04/17/20 [Rx] Cholecalciferol (Vitamin D3) [Vitamin D3 (1250 Mcg = 50,000 Iu)] 1,250 mcg PO Q7D 10/12/23 [History] Folic Acid 1 mg PO DAILY 10/12/23 [History] Multivitamins, Thera [Multivitamin (formulary)] 1 each PO DAILY 10/12/23 [History] Oyster Shell Calcium 500 mg PO DAILY 10/12/23 [History] Apixaban [Eliquis] 2.5 mg PO BID #60 tab 10/19/23 [Rx] Sennosides/Docusate Sodium [Senna-S 8.6-50 mg Tablet] 2 each PO DAILY PRN #30 tablet 10/19/23 [Rx] ondansetron HCL [Zofran] 8 mg PO Q12HR PRN #30 tab 10/19/23 [Rx] traMADol HCl [Ultram] 50 mg PO Q6H PRN #28 tab 10/19/23 [Rx] Follow up Appointment(s)/Referral(s): Scot Louis PAC [PHYSICIAN READING AIDE] - 2 Weeks [facility], [NON-STAFF] - 1-2 Days ([facility] will call you to schedule your in home nursing and physical therapy visits. ) Patient Instructions/Handouts: Anterior Hip Replacement (DC), Anterior Hip Replacement (GEN) Activity/Diet/Wound Care/Special Instructions: Orthopedic Discharge Instructions: 1. Wound care and infection precautions, keep incision dry and covered while showering, no lotions, creams, moisturizers. No soaking, pools, hot tubs. Do not scrub over incision. 2. Weight-bear as tolerated with walker / cane until follow-up. 3. Ice and elevate when necessary. Do not exceed 20 minutes per hour with ice pack. 4. Utilize compression sleeve until seen at first follow up appointment. 5. Pain meds and anticoagulants per prescription. 6. Pain medication has potential to cause constipation. Increase oral fluid and fiber intake. Contact primary care provider if you have not had a bowel movement within 48 hours after discharge. 7. No anti-inflammatory medication until discussed at first post operative visit, this including Motrin, Aleve, Mobic, Diclofenac. 8. Follow up in office at 2 weeks postop with Jimmy Lockett PA-C / Scot Louis PA-C 9. Follow up with your primary care doctor 7-10 days after discharge. 10. Contact [facility] with any questions, . keep incision clean, dry, intact. While showering, cover fusion tape with Saran wrap. Keep fusion tape on until follow-up appointment in office in 2 weeks. Discharge Disposition: HOME WITH HOME HEALTH SERVICES
[2023-10-19 15:12] VITALS: BP 115/63; PULSE 100; RESP 15; TEMP 99.6
== END 2023-10-19 15:25 | disposition home health service (06) ==
LOC: OR 10:58 → 4SSUR 10:59
PROVIDERS: ADMIT Orthopaedic Surgery; ATTEND Orthopaedic Surgery
DX: M87.851 Other osteonecrosis, right femur (principal); G89.18 Other acute postprocedural pain; K70.30 Alcoholic cirrhosis of liver without ascites; I10 Essential (primary) hypertension; D75.1 Secondary polycythemia; R79.89 Other specified abnormal findings of blood chemistry; E78.5 Hyperlipidemia, unspecified; K21.9 Gastro-esophageal reflux disease without esophagitis; F32.A Depression, unspecified; F41.9 Anxiety disorder, unspecified; Z85.828 Personal history of other malignant neoplasm of skin; Z87.891 Personal history of nicotine dependence; Z79.899 Other long term (current) drug therapy
CPT/HCPCS: 96376; 96365; 96366 ×2; 96375 ×2; 97116; 97162; 64447; 80053; 85025; 73501; 27130; G0378 ×3; C1776; J2250; J1100; J0690 ×3; J2405 ×2; J2001; J3010; J2795; J2704; J1170 ×2

== ENCOUNTER → 2024-02-27 | Outpatient (CLI) | payer OTHER ==
--- NOTE | 2024-03-06 09:10 | MM ---
Reason for Exam: Screening (asymptomatic). Last mammogram was performed 1 year(s) and 4 month(s) ago. Patient History: Menarche at age 10. Patient has no children. Postmenopausal. Other cancer, age 50. Maternal aunt had ovarian cancer, age 48. Risk Values: Aracelis 5 year model risk: 1.6%. NCI Lifetime model risk: 8.1%. Prior Study Comparison: 11/22/2018 Screening Mammogram, [facility]. 06/23/2021 Bilateral Screening Mammogram, [facility]. 10/17/2022 Bilateral MG screening mammo w CAD, [facility]. Tissue Density: There are scattered areas of fibroglandular density. Findings: Analyzed By CAD. Right breast: There is no suspicious group of microcalcifications or new suspicious mass. Left breast: There is no suspicious group of microcalcifications or new suspicious mass. Overall Assessment: Negative, BI-RAD 1 Management: Screening Mammogram of both breasts in [address] [facility] will attempt to contact patient to return for supplemental views and ultrasound if indicated. Patient should continue monthly self-breast exams. A clinical breast exam by your physician is recommended on an annual basis. This exam should not preclude additional follow-up of suspicious palpable abnormalities. Note on Aracelis scores and lifetime risk: 1. A Aracelis score greater than 3% is considered moderate risk. If this is the case, consider specialist referral to assess eligibility for a risk reducing agent. 2. If overall lifetime risk for the development of breast cancer is 20% or higher, the patient may qualify for future screening with alternating mammogram and breast MRI. Electronically signed and approved by: Gary Garcia DO
== END | disposition home or self-care (01) ==
LOC: RADMAMWWP 16:22
PROVIDERS: ATTEND Family Medicine
DX: Z12.31 Encounter for screening mammogram for malignant neoplasm of breast
CPT/HCPCS: 77067

== ENCOUNTER → 2024-05-02 | Outpatient (CLI) | payer OTHER ==
[2024-05-02 10:27] LABS: INR 1.1 (<1.2); Prothrombin Time 11.6 sec (10.0-12.5)
--- NOTE | 2024-05-02 10:44 | US ---
EXAMINATION TYPE: US liver DATE OF EXAM: 05/02/2024 COMPARISON: Ultrasound liver 10/10/2023 CLINICAL INDICATION: Female, 59 years old with history of K70.30 ALCOHOLIC CIRRHOSIS OF LIVER WITHOUT ASCITE; alcoholic cirrhosis. Cholecystectomy TECHNIQUE: Grayscale and color Doppler imaging of the right upper quadrant was performed. FINDINGS: EXAM MEASUREMENTS: Liver Length: 13.4 cm Gallbladder Wall: Surgically absent CBD: 0.43 cm Right Kidney: 11.0 x 5.2 x 5.5 cm FORENSIC AUDIT EXPERT NOTES: Pancreas: wnl Liver: diffusely heterogeneous Gallbladder: Surgically absent CBD: wnl Right Kidney: wnl Pancreas is within normal limits. Diffusely heterogenous coarsened liver with surface nodularity. Thi s appearance limits evaluation for small intrahepatic masses with no gross evidence of mass. Gallblad chiquita is surgically absent. Common bile duct is within normal limits. Right kidney demonstrates no hydr onephrosis, nephrolithiasis, or solid mass. No ascites identified within the right upper quadrant. IMPRESSION: 1. Hepatic cirrhosis without gross evidence for suspicious mass. 2. Postcholecystectomy changes. [facility], , 05/02/2024 10:41 AM
[2024-05-02 15:37] LABS: Basophils # (A) 0.06 X 10*3/uL (0.00-0.10); Basophils % (A) 1.3 %; Eosinophils # (A) 0.01 X 10*3/uL (0.04-0.35); Eosinophils % (A) 0.2 %; HCT 43.7 % (37.2-46.3); HGB 14.4 g/dL (12.0-15.0); Lymphocytes # (A) 1.79 X 10*3/uL (0.90-5.00); Lymphocytes % (A) 38.9 %; MCH 33.4 pg (27.0-32.0); MCV 101.4 FL (80.0-97.0); Mean Platelet Volume 11.9 FL (9.5-12.2); Monocytes # (A) 0.64 X 10*3/uL (0.20-1.00); Monocytes % (A) 13.9 %; NRBC Per 100 WBC 0 X 10*3/uL (0.00-0.01); Neutrophils # (A) 2.09 X 10*3/uL (1.80-7.70); Neutrophils % (A) 45.5 %; Platelet Count 129 X 10*3/uL (140-440); RBC 4.31 X 10*6/uL (4.10-5.20); RDW 12.7 % (11.5-14.5)
[2024-05-02 16:22] LABS: Glucose 96 mg/dL (70-110)
[2024-05-02 16:23] LABS: ALT 49 U/L (8-44); AST 94 U/L (13-35); Albumin 4.1 g/dL (3.8-4.9); Albumin/Globulin Ratio 1.37 Ratio (1.60-3.17); Alkaline Phosphatase 158 U/L (41-126); BUN/Creat Ratio 15.83 Ratio (12.00-20.00); Blood Urea Nitrogen 9.5 mg/dL (9.0-27.0); Calcium 9.7 mg/dL (8.7-10.3); Carbon Dioxide 26.8 mmol/L (21.6-31.8); Chloride 103 mmol/L (96-109); Potassium 4.2 mmol/L (3.5-5.5); Sodium 140 mmol/L (135-145); T4, Free (Free Thyroxine) 1.19 ng/dL (0.80-1.80); Total Bilirubin 1.9 mg/dL (0.3-1.2); Total Protein 7.1 g/dL (6.2-8.2)
== END | disposition home or self-care (01) ==
LOC: RADUSWWP 09:07
PROVIDERS: ATTEND Internal Medicine Gastroenterology
DX: K70.30 Alcoholic cirrhosis of liver without ascites
CPT/HCPCS: 76705; 80053; 82105; 82306; 84439; 84443; 85025; 85610; 85730

== ENCOUNTER 2024-06-28 07:40 | Day surgery (SDC) | payer OTHER ==
[2024-06-25 10:37] VITALS: BMI 25.2
[2024-06-28] MEDS: IV FLUID CONTINUATION 1,000 ML IV ONE (08:00)
[2024-06-28 08:07] VITALS: TEMP 99.1
[2024-06-28] MEDS: LACTATED RINGERS 1,000 ML IV SCH (08:12)
[2024-06-28] MEDS ORDERED: PROPOFOL 10 MG/ML 20 ML VIAL IV ONE (09:00)
--- NOTE | 2024-06-28 09:05 | P.PCN ---
Date of Procedure: 06/28/24 Procedure(s) Performed: BRIEF HISTORY: Patient is a 59-year-old, pleasant, with history of liver cirrhosis scheduled for an upper endoscopy as a part of screening for esophageal varices. She was diagnosed with alcoholic liver cirrhosis a year ago. PROCEDURE PERFORMED: Esophagogastroduodenoscopy with biopsy. PREOPERATIVE DIAGNOSIS: History of liver cirrhosis screening for esophageal varices. IV sedation per anesthesia. PROCEDURE: After informed consent was obtained, the patient was brought into [facility] endoscopy unit. IV sedation was administered by Anesthesia under continuous monitoring. Initially the Olympus GIF-140 video endoscope was inserted into the mouth. Esophagus intubated without any difficulty. It was gradually advanced into the stomach and duodenum and carefully examined. The bulb and the second part of the duodenum appeared normal. The scope at this time was withdrawn to the stomach, adequately insufflated with air, and upon careful examination, mucosa of the antrum, body, cardia and the fundus had changes consistent with mild to moderate portal hypertensive gastropathy. No gastric varices identified. The scope was then withdrawn into the esophagus. The GE junction was located at 39 cm from the incisors. The esophagus appeared normal. Small mid and distal esophageal varices identified with no red jonathan dash. There were no erosions or ulcerations seen and the patient tolerated the procedure well. IMPRESSION: 1. Small mid and distal esophageal varices. 2. Mild to moderate portal hypertensive gastropathy. RECOMMENDATIONS: The findings of this examination were discussed with the patient as well as her family.. She was advised to follow-up in the office in 3 to 4 weeks. Will plan repeat upper endoscopy in 2 years. In the meantime she will also be started on nonselective beta-blockers for nonbleeding esophageal varices.
[2024-06-28 09:26] VITALS: RESP 14
[2024-06-28 09:41] VITALS: BP 110/70; PULSE 86
== END 2024-06-28 10:12 | disposition home or self-care (01) ==
LOC: ORWHC2ENDO 07:40
PROVIDERS: ATTEND Internal Medicine Gastroenterology
DX: K29.50 Unspecified chronic gastritis without bleeding (principal); K70.30 Alcoholic cirrhosis of liver without ascites; I85.10 Secondary esophageal varices without bleeding; K21.9 Gastro-esophageal reflux disease without esophagitis; K76.6 Portal hypertension; E78.5 Hyperlipidemia, unspecified; J45.909 Unspecified asthma, uncomplicated; F32.A Depression, unspecified; F41.9 Anxiety disorder, unspecified; Z88.6 Allergy status to analgesic agent; Z79.899 Other long term (current) drug therapy
CPT/HCPCS: 88305; 43239; J2704

== ENCOUNTER → 2024-08-05 | Outpatient (CLI) | payer OTHER ==
[2024-08-05 19:38] LABS: Basophils # (A) 0.06 X 10*3/uL (0.00-0.10); Eosinophils # (A) 0.01 X 10*3/uL (0.04-0.35); Eosinophils % (A) 0.2 %; HCT 42.3 % (37.2-46.3); Lymphocytes # (A) 1.91 X 10*3/uL (0.90-5.00); Lymphocytes % (A) 32.7 %; MCH 32.2 pg (27.0-32.0); MCHC 33.1 g/dL (32.0-37.0); MCV 97.2 FL (80.0-97.0); Mean Platelet Volume 12.4 FL (9.5-12.2); Monocytes # (A) 0.79 X 10*3/uL (0.20-1.00); Monocytes % (A) 13.5 %; NRBC Per 100 WBC 0 X 10*3/uL (0.00-0.01); Neutrophils # (A) 3.06 X 10*3/uL (1.80-7.70); Neutrophils % (A) 52.4 %; Platelet Count 125 X 10*3/uL (140-440); RBC 4.35 X 10*6/uL (4.10-5.20); RDW 13.2 % (11.5-14.5); WBC 5.84 X 10*3/uL (4.50-10.00)
[2024-08-05 20:06] LABS: ALT 51 U/L (8-44); AST 83 U/L (13-35); Albumin 4.3 g/dL (3.8-4.9); Albumin/Globulin Ratio 1.39 Ratio (1.60-3.17); Alkaline Phosphatase 168 U/L (41-126); Blood Urea Nitrogen 17.1 mg/dL (9.0-27.0); Calcium 10.5 mg/dL (8.7-10.3); Carbon Dioxide 25.6 mmol/L (21.6-31.8); Chloride 98 mmol/L (96-109); Creatine Kinase 80 U/L (26-186); Globulin 3.1 g/dL (1.6-3.3); Glucose 108 mg/dL (70-110); Lipase 65 U/L (14-63); Potassium 4.1 mmol/L (3.5-5.5); Sodium 135 mmol/L (135-145); T4, Free (Free Thyroxine) 1.07 ng/dL (0.80-1.80); Total Bilirubin 1.7 mg/dL (0.3-1.2); Total Protein 7.4 g/dL (6.2-8.2)
== END | disposition home or self-care (01) ==
LOC: LABWHC1 14:44
PROVIDERS: ATTEND Family Medicine
DX: M87.9 Osteonecrosis, unspecified (principal); R07.9 Chest pain, unspecified
CPT/HCPCS: 36415; 80053; 82550; 83690; 84439; 84443; 84484; 85025; 85379

== ENCOUNTER → 2024-11-20 | Outpatient (CLI) | payer OTHER ==
--- NOTE | 2024-11-20 09:37 | US ---
EXAMINATION TYPE: US liver DATE OF EXAM: 11/20/2024 COMPARISON: 05/02/2024 CLINICAL INDICATION: Female, 59 years old with history of K70.30 ALCOHOLIC CIRRHOSIS OF LIVER WITHOUT ASCIT; cholecystectomy TECHNIQUE: Grayscale and color Doppler imaging of the right upper quadrant. FINDINGS: EXAM MEASUREMENTS: Liver Length: 13.7 cm Gallbladder: Surgically absent CBD: 0.5 cm, color Doppler imaging was utilized to isolate the common bile duct for measurement. Right Kidney: 9.6x5.4x5.3 cm VICE PRESIDENT CORPORATE COMMUNICATIONS NOTES: limited exam due to overlying bowel Pancreas: Only portions of the thigh are seen. Head and tail obscured by bowel gas shadowing. Liver: Attenuating, cirrhotic, nodular contour Slightly echogenic area seen: 2.5x2.5x1.7cm in the right liver lobe possibly due to acoustic enhancem ent behind a blood vessel. Gallbladder: Surgically absent Evidence for sonographic Coronado's sign: No CBD: wnl Right Kidney: No hydronephrosis or masses seen IMPRESSION: 1. Cirrhosis and severe fatty infiltration. The degree of parenchymal attenuation limits assessment f or focal lesions. Questionable 2.5 cm lesion in the right liver lobe. Liver MRI to further evaluate. 2. Status post cholecystectomy. No biliary ductal dilatation. [facility], , 11/20/2024 9:34 AM
[2024-11-20 15:58] LABS: HCT 45.3 % (37.2-46.3); MCH 33.7 pg (27.0-32.0); MCHC 33.1 g/dL (32.0-37.0); MCV 101.8 FL (80.0-97.0); Mean Platelet Volume 11.4 FL (9.5-12.2); NRBC Per 100 WBC 0 X 10*3/uL (0.00-0.01); Platelet Count 121 X 10*3/uL (140-440); RBC 4.45 X 10*6/uL (4.10-5.20); RDW 12.8 % (11.5-14.5)
[2024-11-20 16:00] LABS: ALT 63 U/L (8-44); AST 118 U/L (13-35); Albumin 3.9 g/dL (3.8-4.9); Albumin/Globulin Ratio 1.22 Ratio (1.60-3.17); Alkaline Phosphatase 185 U/L (41-126); BUN/Creat Ratio 14.14 Ratio (12.00-20.00); Blood Urea Nitrogen 9.9 mg/dL (9.0-27.0); Calcium 9.7 mg/dL (8.7-10.3); Carbon Dioxide 25.4 mmol/L (21.6-31.8); Chloride 102 mmol/L (96-109); Globulin 3.2 g/dL (1.6-3.3); Glucose 98 mg/dL (70-110); Potassium 3.9 mmol/L (3.5-5.5); Sodium 140 mmol/L (135-145); Total Protein 7.1 g/dL (6.2-8.2)
== END | disposition home or self-care (01) ==
LOC: RADUSWWP 08:48
PROVIDERS: ATTEND Internal Medicine Gastroenterology
DX: K70.30 Alcoholic cirrhosis of liver without ascites (principal); K76.0 Fatty (change of) liver, not elsewhere classified; Z90.49 Acquired absence of other specified parts of digestive tract
CPT/HCPCS: 76705; 80053; 82105; 85027